=== PATIENT | male | born 1945 | race Two or more races ===

== ENCOUNTER 2022-11-22 21:57 | Inpatient (IN) | payer MEDICARE, MEDICAID ==
[~2022-11-22] VITALS: Ht 172.7 cm; Wt 56.9 kg
--- NOTE | 2022-11-22 22:30 | NUR ---
TO ER BED 11. HERIBERTOPA FROM [facility] [place] FOR ABNORMAL LAB HGB: 5.1. PT IS ALERT AND ORIENTED. RR EVEN AND NON LABORED. AMBULATORY W/ STEADY GAIT. URINAL AT BEDSIDE. CONNECTED TO POX AND HEART MONITOR
--- NOTE | 2022-11-22 22:34 | NUR ---
IV ESTABLISHED, [email or web address]
--- NOTE | 2022-11-22 22:35 | NUR ---
COVID SWAB COLLECTED
--- NOTE | 2022-11-22 22:35 | NUR ---
BLOOD COLLECTED AND SENT TO LAB
[2022-11-22 23:05] LABS: BASOPHILS % (AUTO) 0.3 % (0.0-2.0); EOSINOPHILS % (AUTO) 0.5 % (0.0-6.0); LYMPHOCYTES # (AUTO) 1.2 K/uL (0.8-4.8); LYMPHOCYTES % (AUTO) 13.8 % (20.0-44.0); MEAN CORPUSCULAR HGB CONC 31 g/dl (31.0-36.0); MEAN CORPUSCULAR VOLUME 64 fL (80-96); MONOCYTES # (AUTO) 0.5 K/uL (0.1-1.30); NEUTROPHILS # (AUTO) 6.9 K/uL (1.8-8.9); NEUTROPHILS % (AUTO) 79.4 % (43.0-81.0); PLATELET COUNT (AUTO) 270 K/uL (150-450); RED BLOOD CELL COUNT(AUTO) 2.76 MIL/uL (4.5-6.0); WHITE BLOOD COUNT (AUTO) 8.7 K/uL (4.3-11.0)
--- NOTE | 2022-11-22 23:14 | NUR ---
URINE SAMPLE COLLECTED AND SENT TO LAB
[2022-11-22 23:16] LABS: CALCIUM, SERUM 8.7 mg/dL (8.5-10.1); CARBON DIOXIDE 25 mmol/L (21-32); CHLORIDE 104 mmol/L (98-107); CREATININE 2.1 mg/dL (0.6-1.3); GLUCOSE 105 mg/dL (74-106); POTASSIUM 4.4 mmol/L (3.5-5.1); SODIUM SERUM 136 mmol/L (136-145); UREA NITROGEN, BLOOD 47 mg/dL (7-18)
[2022-11-22 23:17] LABS: HEMATOCRIT 18 % (39-51); HEMOGLOBIN 5.4 g/dL (13.5-17.5)
--- NOTE | 2022-11-22 23:19 | NUR ---
HGB 5.4 MD JENNY MADE AWARE
--- NOTE | 2022-11-22 23:30 | NUR ---
CHAPERONED DR TIERNEY DURING FECAL OCCULT SAMPLE
[2022-11-23] VITALS (13 sets, daily range): BP systolic 102–142; BP diastolic 52–80
[2022-11-23 00:48] LABS: BILIRUBIN,URINE NEGATIVE (NEGATIVE); COLOR,URINE OTHER (YELLOW); LEUKOCYTE ESTERASE ,URINE 3+ (NEGATIVE); NITRITE, URINE NEGATIVE (NEGATIVE); PROTEIN,URINE NEGATIVE (NEGATIVE); UGLUCOSE NEGATIVE (NEGATIVE); UROBILINOGEN,URINE 0.2 EU/dL (0.2)
[2022-11-23 00:53] LABS: OCCULT BLOOD STOOL NEGATIVE (NEGATIVE)
--- NOTE | 2022-11-23 01:00 | NUR ---
PT SIGNED BLOOD TRANSFUSSION CONSENT FORM
[2022-11-23] MEDS ORDERED: CEFTRIAXONE 1GM BAG (ER ONLY) 1 GM/50 ML PIGGYBACK IV ONE (01:30)
[2022-11-23] MEDS ORDERED: ACETAMINOPHEN 325 MG TABLET PO PRN (01:30)
[2022-11-23] MEDS ORDERED: Z GUARD REMEDY 4 OZ OINT TP PRN (01:30)
[2022-11-23] MEDS ORDERED: MAG HYDROX/AL HYDROX/SIMETH 30 ML UDC PO PRN (01:30)
[2022-11-23] MEDS ORDERED: MAGNESIUM HYDROXIDE 30 ML UDC PO PRN (01:30)
[2022-11-23] MEDS ORDERED: ONDANSETRON HCL/PF 4 MG/2 ML VIAL IVP PRN (01:30)
[2022-11-23] MEDS ORDERED: CEFTRIAXONE 1 G VIAL ONE (01:31)
--- NOTE | 2022-11-23 02:00 | NUR ---
INITIATED BLOOD TRANFUSSION VIA RAC18G @50MLS/HR VITAL SIGNS: HR 97 BP 100/48 O2 97 TEMP 98.2 NO ADVERSE REACTION NOTED.
[2022-11-23 02:33] LABS: BACTERIA,URINE Moderate /HPF (None Seen); SQUAMOUS EPITHELIAL CELL,UR Few /HPF (None Seen); URINE AMORPHOUS URATE Moderate /HPF (None Seen); WBC,URINE 21-50 /HPF (0-3)
--- NOTE | 2022-11-23 02:44 | NUR ---
REPORT GIVEN TO FILIPE GARCÍA FOR MATHIEU
--- NOTE | 2022-11-23 02:47 | NUR ---
RN notes Received report from RICKY Kamara
--- NOTE | 2022-11-23 03:20 | NUR ---
plush brusher notes Received Pt from ER nurse RICKY Kamara. Pt is alert and orientedX2 with episode of confusion and forgetful. On room air. No SOB. No S/S of distress noted. 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 IV site at RAC # 18 is clean, intact and infusing well PRBC. PRBC was started at 0200 am in ER by RICKY Kamara. VS is stable. afebrile. No S/S of blood transfusion reaction. Skin assessment is done and performed and picture taken. Pt's belongings was checked by AMINAH Nelson. Reorient Pt to the room and the use of call light. Pt verbalize understanding. Safety precautions is maintained. Bed at low position, brakes locked, side rails upX3, hob elevated, bed alarm is on, and call light is within reach. will continue to monitor.
--- NOTE | 2022-11-23 03:28 | NUR ---
PT TRANSFERRED TO 3W, ACLS PROTOCOLS
[2022-11-23] MEDS: PANTOPRAZOLE 40 MG VIAL IV SCH ×3 (03:42→17:08)
--- NOTE | 2022-11-23 03:43 | NUR ---
RN notes Received Pt from ER nurse RICKY Kamara. Held protonix because of ongoing blood transfusion.
--- NOTE | 2022-11-23 03:50 | NUR ---
RN notes Called Feliz Gonzalez next to kin ( [phone]) regarding Pt's status and also covid vaccine. Leave a message to Feliz and awaiting for his call.
--- NOTE | 2022-11-23 05:29 | NUR ---
RN notes 1 unit PRBC is finished transfusing. VS is stable. No S/S of blood transfusion noted. afebrile. No SOB. Pt tolerated well. BP 121/61. HR 72. temp 98.2. O2 sat is 100%. CBC stat order per MD ordered.
[2022-11-23] MEDS: IV NS 0.9% 1,000 ML IV PRN (05:39)
[2022-11-23 05:43] LABS: BASOPHILS % (AUTO) 0.4 % (0.0-2.0); EOSINOPHILS % (AUTO) 0.6 % (0.0-6.0); HEMATOCRIT 21 % (39-51); LYMPHOCYTES # (AUTO) 1.1 K/uL (0.8-4.8); LYMPHOCYTES % (AUTO) 17.1 % (20.0-44.0); MEAN CORPUSCULAR HGB CONC 31 g/dl (31.0-36.0); MEAN CORPUSCULAR VOLUME 69 fL (80-96); MONOCYTES # (AUTO) 0.4 K/uL (0.1-1.30); MONOCYTES % (AUTO) 6.8 % (2.0-12.0); NEUTROPHILS # (AUTO) 4.8 K/uL (1.8-8.9); NEUTROPHILS % (AUTO) 75.1 % (43.0-81.0); PLATELET COUNT (AUTO) 219 K/uL (150-450); WHITE BLOOD COUNT (AUTO) 6.3 K/uL (4.3-11.0)
[2022-11-23 06:03] LABS: ALANINE AMINOTRANSFERASE 9 U/L (12-78); ALBUMIN 2.8 g/dL (3.4-5.0); ALKALINE PHOSPHATASE 69 U/L (46-116); ASPARTATE AMINOTRANSFERASE 8 U/L (15-37); BILIRUBIN,TOTAL 0.2 mg/dL (0.2-1.0); CALCIUM, SERUM 8.6 mg/dL (8.5-10.1); CARBON DIOXIDE 22 mmol/L (21-32); CHLORIDE 106 mmol/L (98-107); CREATININE 2.2 mg/dL (0.6-1.3); GLUCOSE 129 mg/dL (74-106); MAGNESIUM 2.6 mg/dL (1.8-2.4); PHOSPHORUS 1.8 mg/dL (2.5-4.9); POTASSIUM 3.6 mmol/L (3.5-5.1); SODIUM SERUM 137 mmol/L (136-145); TOTAL PROTEIN, SERUM 7.1 g/dL (6.4-8.2); UREA NITROGEN, BLOOD 44 mg/dL (7-18)
[2022-11-23 06:18] LABS: HEMOGLOBIN 6.3 g/dL (13.5-17.5)
[2022-11-23 06:33] LABS: THYROID STIMULATING HORMONE 1.222 uIU/mL (0.358-3.74)
--- NOTE | 2022-11-23 06:50 | NUR ---
RN notes Second PRBC started. VS is stable. afebrile. Blood transfusion is checked and cosigned with RICKY Thompson.
--- NOTE | 2022-11-23 07:00 | NUR ---
RN closing notes Pt is resting in bed comfortably. Pt is alert and orientedX2 with episode of confusion and forgetful. On room air. No SOB. No S/S of distress noted. Tele monitor showed SR with first degree av block with BBB hr at 63. IV site at RAC # 18 is clean, intact and infusing well second PRBC. VS is stable. afebrile. No S/S of blood transfusion reaction noted. Safety precautions is maintained. Bed at low position, brakes locked, side rails upX3, hob elevated, bed alarm is on, and call light is within reach. Will endorse to am nurse for MATHIEU.
--- NOTE | 2022-11-23 07:30 | NUR ---
REGIONAL OFFICE COORDINATOR OPENING NOTE RECEIVED PATIENT ASLEEP IN BED, EASILY AWAKENED. A/Ox2 WITH EPISODES OF CONFUSION AND FORGETFULNESS, ABLE TO MAKE NEEDS KNOWN. PT ON ROOM AIR, BREATHING EVEN AND NON-LABORED. NO S/S OF RESPIRATORY DISTRESS. PATIENT HAS NO C/O OF PAIN OR DISCOMFORT. 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 IV ACCESS RAC #18G, INTACT AND PATENT, RUNNING PRBC, VS CHECKED, STABLE AND RECORDED AT 0720. SAFETY MEASURES IN PLACE: BED LOCKED AND IN LOWEST POSITION, SIDE RAILS UPx2, HOB ELEVATED, CALL LIGHT WITHIN REACH. WILL CONTINUE TO MONITOR.
[2022-11-23] MEDS ORDERED: MAGN1TAB4 PO (08:06)
--- NOTE | 2022-11-23 08:57 | NUR ---
RN NOTE HELD PROTONIX IV, PT RECEIVING PRBC
[2022-11-23] MEDS: CEPHALEXIN MONOHYDRATE 500 MG CAPSULE PO SCH ×2 (08:59→17:08)
--- NOTE | 2022-11-23 10:30 | NUR ---
RN NOTE 1 UNIT PRBC FINISHED TRANSFUSING. VS TAKEN, STABLE. AFEBRILE. PT TOLERATED WELL. BP 112/58, HR 71, TEMP 98.1, O2 AT 99%.
[2022-11-23] MEDS ORDERED: NEUTRA PHOS 1 POWD.PACKET PO ONE (11:30)
--- NOTE | 2022-11-23 13:30 | NUR ---
RN NOTE BLADDER SCAN SHOWED >900 URINE, CHARGE NURSE, SMITH, ROGERIO, DR PAUL ANN NOTIFIED. PT REFUSED WOLFF CATHETER INSERTION. EDUCATED PATIENT ABOUT RISKS AND BENEFITS OF HAVING WOLFF IN PLACE, STILL REFUSING. PT NOT COMPLAINING OF ANY PAIN, ASSISTED PATIENT TO THE BATHROOM. WILL CONTINUE TO MONITOR.
[2022-11-23 13:45] LABS: LYMPHOCYTES % (MANUAL) 20 % (16-48); NEUTROPHILS % (MANUAL) 74 (42-76)
[2022-11-23 13:46] LABS: BASOPHILS % (MANUAL) 0 % (0.0-2.0); EOSINOPHILS % (MANUAL) 0 % (0-4); MONOCYTES % (MANUAL) 6 % (0-11.0)
[2022-11-23 14:07] LABS: LYMPHOCYTES % (MANUAL) 23 % (16-48); MONOCYTES % (MANUAL) 4 % (0-11.0); NEUTROPHILS % (MANUAL) 73 (42-76)
--- NOTE | 2022-11-23 14:20 | NUR ---
RN NOTE PT IV SITE CAME OUT HE STAND UP, ATTEMPTED TO INSERT NEW IV LINE, PT REFUSED, STATED I DON'T WANT IT. MD AWARE, ORDERED PSYCH CONSULT. EDUCATED PT ABOUT HAVING IV ACCESS, STILL REFUSING. WILL CONTINUE TO MONITOR.
--- NOTE | 2022-11-23 16:00 | NUR ---
RN NOTE WOLFF CATHETER INSERTED, DRAINING YELLOW URINE, 1.7L OUT INITIALLY, TOLERATED WELL, WILL CONTINUE TO MONITOR.
--- NOTE | 2022-11-23 16:15 | NUR ---
RN NOTE PT TRIED TO REMOVE WOLFF CATHETER AND IV LINE, YELLING AND KICKING. DR PAUL ANN NOTIFIED, ORDERED BILATERAL SOFT WRIST RESTRAINTS. WILL CONTINUE TO MONITOR PT.
--- NOTE | 2022-11-23 18:32 | NUR ---
ACADEMIC COACH CLOSING NOTE RECEIVED PATIENT ASLEEP IN BED, EASILY AWAKENED. A/Ox2 WITH EPISODES OF CONFUSION AND FORGETFULNESS, ABLE TO MAKE NEEDS KNOWN. PT ON ROOM AIR, BREATHING EVEN AND NON-LABORED. NO S/S OF RESPIRATORY DISTRESS. PATIENT HAS NO C/O OF PAIN OR DISCOMFORT. IV ACCESS LFA #22G, INTACT AND PATENT, RUNNING NS @75ML/HR. PT HAVE A WOLFF CATHETER IN PLACE, DRAINING WELL. OUTPUT: 600ML. PT IS ON EXTERNAL SHAREPOINT MANAGER. BILATERAL SOFT WRIST RESTRAINTS IN PLACE. CHECKED CIRCULATION, REPOSITIONED PT Q2H. SAFETY MEASURES IN PLACE: BED LOCKED AND IN LOWEST POSITION, SIDE RAILS UPx2, HOB ELEVATED, CALL LIGHT WITHIN REACH. WILL ENDORSE TO NEXT SHIFT FOR MATHIEU.
--- NOTE | 2022-11-23 19:15 | NUR ---
RN opening notes Pt is resting in bed comfortably. Pt is alert and orientedX2 with episode of confusion and forgetful. On room air. No SOB. No S/S of distress noted. Tele monitor showed SR with first degree av block with BBB hr at 63. IV site at LFA# 22 is clean, intact and infusing well NS@ 75ml/hr VS is stable. Bilateral soft wrists restraint is intact, skin warm to touch and circulation checks Q 2hr. Jarrett cath is inplaced and draining yellow urine. Safety precautions is maintained. Bed at low position, brakes locked, side rails upX3, hob elevated, bed alarm is on, and call light is within reach. Will continue to monitor.
[2022-11-24] MEDS: IV NS 0.9% 1,000 ML IV PRN ×2 (02:33→19:20)
[2022-11-24 06:32] LABS: BASOPHILS % (AUTO) 0.2 % (0.0-2.0); EOSINOPHILS % (AUTO) 0.6 % (0.0-6.0); HEMATOCRIT 25 % (39-51); HEMOGLOBIN 7.8 g/dL (13.5-17.5); LYMPHOCYTES # (AUTO) 1.3 K/uL (0.8-4.8); LYMPHOCYTES % (AUTO) 20.8 % (20.0-44.0); MEAN CORPUSCULAR HGB CONC 32 g/dl (31.0-36.0); MEAN CORPUSCULAR VOLUME 69 fL (80-96); MONOCYTES # (AUTO) 0.5 K/uL (0.1-1.30); MONOCYTES % (AUTO) 8.2 % (2.0-12.0); NEUTROPHILS # (AUTO) 4.4 K/uL (1.8-8.9); NEUTROPHILS % (AUTO) 70.2 % (43.0-81.0); PLATELET COUNT (AUTO) 240 K/uL (150-450); RED BLOOD CELL COUNT(AUTO) 3.54 MIL/uL (4.5-6.0); WHITE BLOOD COUNT (AUTO) 6.3 K/uL (4.3-11.0)
--- NOTE | 2022-11-24 06:44 | NUR ---
RN closing notes Pt is resting in bed comfortably. Pt is alert and orientedX2 with episode of confusion and forgetful. On room air. No SOB. No S/S of distress noted. IV site at LFA# 22 is clean, intact and infusing well NS@ 75ml/hr. VS is stable. Bilateral soft wrists restraint is intact, skin warm to touch and circulation checks Q 2hr. Jarrett cath is inplaced and draining yellow urine. Kept Pt clean,dry and comfortable. Safety precautions is maintained. Bed at low position, brakes locked, side rails upX3, hob elevated, bed alarm is on, and call light is within reach. Will endorse to am nurse for MATHIEU.
[2022-11-24 07:00] VITALS: BP 111/69
[2022-11-24 07:06] LABS: ALANINE AMINOTRANSFERASE 6 U/L (12-78); ALBUMIN 2.6 g/dL (3.4-5.0); ALKALINE PHOSPHATASE 67 U/L (46-116); ASPARTATE AMINOTRANSFERASE 10 U/L (15-37); BILIRUBIN,DIRECT 0.1 mg/dL (0.0-0.2); BILIRUBIN,TOTAL 0.3 mg/dL (0.2-1.0); CALCIUM, SERUM 8.6 mg/dL (8.5-10.1); CARBON DIOXIDE 22 mmol/L (21-32); CHLORIDE 108 mmol/L (98-107); CREATININE 1.9 mg/dL (0.6-1.3); GLUCOSE 98 mg/dL (74-106); MAGNESIUM 2.3 mg/dL (1.8-2.4); PHOSPHORUS 2.9 mg/dL (2.5-4.9); POTASSIUM 4.8 mmol/L (3.5-5.1); SODIUM SERUM 137 mmol/L (136-145); UREA NITROGEN, BLOOD 28 mg/dL (7-18)
--- NOTE | 2022-11-24 07:20 | NUR ---
RN OPENING NOTE RECEIVED PATIENT RESTING IN BED. A/Ox2 WITH EPISODES OF CONFUSION AND FORGETFULNESS, ABLE TO MAKE NEEDS KNOWN. PT ON ROOM AIR, BREATHING EVEN AND NON-LABORED. NO S/S OF RESPIRATORY DISTRESS. PATIENT HAS NO C/O OF PAIN OR DISCOMFORT. IV ACCESS LFA #22G, INTACT AND PATENT, RUNNING NS @75 ML/HR. BILATERAL SOFT WRIST RESTRAINTS IN PLACE, SKIN WARM TO TOUCH. PT HAVE A WOLFF CATHETER IN PLACE AND DRAINING WELL. SAFETY MEASURES IN PLACE: BED LOCKED AND IN LOWEST POSITION, SIDE RAILS UPx3, HOB ELEVATED, CALL LIGHT AND BEDSIDE TABLE WITHIN REACH. WILL CONTINUE TO MONITOR.
[2022-11-24] MEDS: CEPHALEXIN MONOHYDRATE 500 MG CAPSULE PO SCH ×2 (08:25→17:06)
[2022-11-24] MEDS: PANTOPRAZOLE 40 MG VIAL IV SCH ×2 (08:25→17:11)
[2022-11-24] MEDS ORDERED: LORAZEPAM INJ 2 MG/ML VIAL IV PRN (11:00)
--- NOTE | 2022-11-24 11:00 | NUR ---
RN NOTE CALLED [facility] FOR PT MEDICATION LISTS @[phone], SPOKE TO CARLTON SUAREZ, SHE STATED WILL FAX THE MED LIST.
[2022-11-24] MEDS: ENSURE CLEAR 237 ML LIQUID (MIX BERRY) PO SCH ×2 (12:41→17:02)
[2022-11-24] MEDS: HALOPERIDOL 1 MG TABLET PO SCH ×2 (13:45→17:06)
[2022-11-24 16:00] VITALS: BP 109/59
--- NOTE | 2022-11-24 18:32 | NUR ---
RN CLOSING NOTE PATIENT ASLEEP IN BED, EASILY AWAKENED. A/Ox2 WITH EPISODES OF CONFUSION AND FORGETFULNESS, ABLE TO MAKE NEEDS KNOWN. PT ON ROOM AIR, BREATHING EVEN AND NON-LABORED. NO S/S OF RESPIRATORY DISTRESS. PATIENT HAS NO C/O OF PAIN OR DISCOMFORT. IV ACCESS LFA #22G, INTACT AND PATENT, RUNNING NS @75ML/HR. PT HAVE A WOLFF CATHETER IN PLACE, DRAINING WELL. OUTPUT: 2100ML. BILATERAL SOFT WRIST RESTRAINTS IN PLACE. CHECKED CIRCULATION, REPOSITIONED PT Q2H. SAFETY MEASURES IN PLACE: BED LOCKED AND IN LOWEST POSITION, SIDE RAILS UPx2, HOB ELEVATED, CALL LIGHT WITHIN REACH. WILL ENDORSE TO NEXT SHIFT FOR MATHIEU.
--- NOTE | 2022-11-24 19:45 | NUR ---
MS RN NOTES RECEIVED ON BED A/O X1-2.CONFUSED,IBF NS AT 65ML/HR RATE INFUSING WELL ON LEFT FORE ARM VIA IB PUMP,SITE PATENT.ON BILATERAL SOFT WRIST RESTRAINTS,TRYING TO HET OUT OF BED.WOLFF CATH IN PLACE DRAINS YELLOWISH OUTPUT.FALL PRECAUTION OBSERVED,BED ALARM,BED ON LOWEST POSITION AND LOCKED.WILL CONTINUE TO MONITOR STATUS.CALL LIGHT IN REACH,NEEDS ANTICIPATED.
[2022-11-24 20:00] VITALS: BP 114/58
--- NOTE | 2022-11-25 06:37 | NUR ---
MS GARCÍA NOTES ACCU-CHECK BLOOD SUGAR CHECK 116,NO INSULIN COVERAGE. Addendum: 11/25/22 at 0651 by ALEXEY WHITTINGTON RN ACCU-CHECK NOT FOR THIS PATIENT.
--- NOTE | 2022-11-25 06:38 | NUR ---
MS GARCÍA NOTES SLEEP WELL AT NIGHT.MORNING CARE RENDERED TOLERATED WELL,SALINE LOCK LEFT ARM INTACT AND PATENT.RIGHT GROIN DRESSING INTACT AND DRY,CALL LIGHT IN REACH,NEEDS ATTENDED. Addendum: 11/25/22 at 0644 by ALEXEY WHITTINGTON RN WRONG ENTRY OF NOTES,NOT FOR THIS PATIENT.
--- NOTE | 2022-11-25 06:51 | NUR ---
MS RN NOTES SLEPT WELL AT NIGHT,IVF INFUSING WELL ON LEFT ARM.RESTRAINTS IN USED FOR SAFETY,MORNING CARE RENDERED,WOLFF CATH DRAINS WELL,EMPTIED 1900 OF URINE.IN NO ACUTE DISTRESS.
--- NOTE | 2022-11-25 07:30 | NUR ---
RN MS NOTES PT IN BED, AWAKE, ALERT AND ORIENTED, NO COMPLAINT AT THIS TIME, RESPIRATIONS NORMAL, NEEDS ATTENDED, KEPT WARM AND COMFORTABLE IN BED.
[2022-11-25 08:00] VITALS: BP 126/63
[2022-11-25] MEDS: PANTOPRAZOLE 40 MG VIAL IV SCH ×2 (08:21→17:01)
[2022-11-25] MEDS: ENSURE CLEAR 237 ML LIQUID (MIX BERRY) PO SCH ×3 (08:21→17:01)
[2022-11-25] MEDS: CEPHALEXIN MONOHYDRATE 500 MG CAPSULE PO SCH ×2 (08:21→17:01)
[2022-11-25] MEDS: HALOPERIDOL 1 MG TABLET PO SCH ×3 (08:21→17:01)
--- NOTE | 2022-11-25 10:39 | NUR ---
RN MS NOTES PT IN BED, DR. SORIA AT BEDSIDE FOR PSYCH EVAL.
[2022-11-25] MEDS: IV NS 0.9% 1,000 ML IV PRN (12:51)
[2022-11-25 15:23] LABS: BILIRUBIN,URINE NEGATIVE (NEGATIVE); LEUKOCYTE ESTERASE ,URINE 3+ (NEGATIVE); NITRITE, URINE NEGATIVE (NEGATIVE); PROTEIN,URINE 1+ mg/dl (NEGATIVE); UGLUCOSE 1+ mg/dL (NEGATIVE); UROBILINOGEN,URINE 0.2 EU/dL (0.2)
[2022-11-25 15:26] LABS: COLOR,URINE STRAW (YELLOW)
[2022-11-25 15:48] LABS: BACTERIA,URINE Many /HPF (None Seen); RBC,URINE 21-50 /HPF (0-2); SQUAMOUS EPITHELIAL CELL,UR Few /HPF (None Seen); WBC,URINE 21-50 /HPF (0-3)
[2022-11-25 15:49] LABS: URINE AMORPHOUS URATE Many /HPF (None Seen)
[2022-11-25 16:05] VITALS: BP 95/46
--- NOTE | 2022-11-25 18:12 | NUR ---
RN MS NOTES PT IN BED, RESTING, DENIES PAIN, NOT IN DISTRESS, CALL LIGHT WITHIN REACH, IV FLUIDS INFUSING WELL, F/C IN PLACE DRAINING WELL WITH CLEAR, YELLOW URINE, NOTED WITH GOOD APPETITE, SAFETY PRECAUTIONS OBSERVED, BED ALARM ON AT ALL TIMES, NEEDS ATTENDED.
--- NOTE | 2022-11-26 05:50 | NUR ---
CLOSING NOTES: ALERTAND ORIENTATED X1 - 2 ARGUMENTIVE WILL ASK FOR COFFE OR WATER OR TOOTHBRUSH AND WILL CONTINUE TO SAY "NALINI PLS I NEED A TOOTH BRUSH, OR "NALINI i WANT WATER" IF YOU ANSWER WITH I'LL BRING IT SOON I CAN HE'LL REPEAT AGAIN "TEMI I NEED WATERN Temi I WANT COFFEE. HE'LL REPEAT HIS NEEDS 3 -4 TIMES BACK TO BACK EVEN WHEN AN ANSWER TO HIS QUESTION IS GIVEN. 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 HE AMBULATS WIH STANDBY ASSIST. WOLFF OUTPUT 2100LITERS COLOR PALE YELLOW CLEAR WITH AMBULATION NO DIZZINESS OR UNSTEADINESS SEEN.
--- NOTE | 2022-11-26 07:10 | NUR ---
MS RN OPENING NOTES RECEIVED PATIENT SITTING ON BED, A/O X1-2, CONFUSED, ASKING ABOUT HIS BREAKFAST, BREATHING ON ROOM AIR WITHOUT ANY DIFFICULTY, IV ACCESS LFA G#22 SALINE LOCKED, PATENT, INTACT AND FLOWING WELL. ORDER OF NS 65ML/HR RATE HAS BEEN PLACED ON HOLD BY NIGHT RN BECAUSE PATIENT HAD INTAKE OF ABOUT 2L WATER AND OUTPUT IS PALE YELLOW. WILL LET MD KNOW. WITH WOLFF CATH, PATENT AND DRAINING URINE VIA GRAVITY. DENIES PAIN OR DISCOMFORT. FALL PRECAUTION MAINTAINED: BED ALARM, BED ON LOWEST POSITION AND LOCKED POSITION. CALL LIGHT AND TRAY TABLE WITHIN EASY REACH. WILL CONTINUE TO MONITOR.
[2022-11-26 08:00] VITALS: BP 116/70
--- NOTE | 2022-11-26 08:02 | NUR ---
RN NOTES - PATIENT GOT OUT OF BED, BED ALARM WENT OFF, WOLFF CATHETER WAS PULLED AND WAS SEEN ON THE FLOOR, PATIENT INSERTED ON GETTING UP AND DROPPED SOME FECES ON THE FLOOR. PATIENT WAS MAKING FISTS, SECURED MD ORDER TO REINSTATE BILATERAL SOFT RESTRAINTS FOR SAFETY, CALLED THE GUARD TO ASSIST, PATIENT COOPERATED CALMLY. INSPECTED THE MEATUS, SCANT BLEEDING NOTED BUT NO ACTIVE BLEEDING, PATIENT DENIED PAIN OR DISCOMFORT SAYING "IT'S OKAY, IT'S OKAY". WILL CONTINUE TO MONITOR FOR BLEEDING AND BLADDER DISTENTION, WILL SECURE MD ORDERS FOR WOLFF OR STRAIGHT CATHETER INSERTION IF NECESSARY.
[2022-11-26] MEDS: ENSURE CLEAR 237 ML LIQUID (MIX BERRY) PO SCH ×3 (08:55→16:25)
[2022-11-26] MEDS: PANTOPRAZOLE 40 MG VIAL IV SCH ×2 (09:06→16:24)
[2022-11-26] MEDS: HALOPERIDOL 1 MG TABLET PO SCH ×3 (09:06→16:25)
[2022-11-26] MEDS: CEPHALEXIN MONOHYDRATE 500 MG CAPSULE PO SCH ×2 (09:07→16:25)
--- NOTE | 2022-11-26 10:02 | NUR ---
RN NOTES - PATIENT IS MORE COOPERATIVE THIS TIME, FOLLOWS COMMAND, OBEDIENT, POLITE, WANTS TO TAKE A SHOWER AND CLEAN HIMSELF. NO NEED FOR RESTRAINTS AT THIS MOMENT, MADE MD AWARE. OK TO SHOWER PER AMINAH WYNN TO ACCOMPANY PATIENT SAFELY WITH RN SUPERVISION. WILL CONTINUE TO MONITOR.
--- NOTE | 2022-11-26 15:00 | NUR ---
RN NOTES - ENCOURAGED PATIENT TO USE URINAL, PATIENT CLAIMING THAT HE HAS URINATED CLEAR YELLOW URINE TWICE ALREADY AND FLUSHED. UPON PALPATION OF THE BLADDER, PATIENT IS NOT DISTENDED. WILL CONTINUE TO MONITOR.
[2022-11-26 16:00] VITALS: BP 128/70
--- NOTE | 2022-11-26 18:34 | NUR ---
MS RN CLOSING NOTES PATIENT LYING IN BED, A/OX3, EPISODES OF CONFUSION BUT EASILY GETS REORIENTED, BREATHING ON ROOM AIR WITHOUT ANY DIFFICULTY, STILL WITH IV ACCESS ON LFA G#22 SALINE LOCKED, PATENT, INTACT COVERED WITH GAUZE AND SLEEVE, CIRCULATION IS WNL. DENIED PAIN OR DISCOMFORT. ALL DUE MEDS GIVEN AND ACCEPTED BY PATIENT. SAFETY MEASURES AND FALL PRECAUTION MAINTAINED: BED ALARM, BED ON LOWEST POSITION AND LOCKED POSITION. CALL LIGHT AND TRAY TABLE WITHIN EASY REACH. WILL ENDORSE TO JINRIKSHA DRIVER NURSE.
--- NOTE | 2022-11-26 20:01 | NUR ---
RN OPENING NOTE PATIENT ASLEEP IN BED. A/OX3. NO S/S OF DISTRESS, BREATHING WITHOUT DIFFICULTY ON ROOM AIR. LFA #22 SL INTACT AND PATENT. SAFETY MEASURES IN PLACE: BED LOCKED AND AT LOWEST POSITION, BED AT LOW FOWLERS, RAILS UP X2, CALL MEDINA WITHIN REACH. WILL CONTINUE TO MONITOR PATIENT.
[2022-11-26] MEDS ORDERED: TAMSULOSIN 0.4 MG CAP.SR.24H PO SCH (22:00)
--- NOTE | 2022-11-27 06:31 | NUR ---
RN CLOSING NOTE PATIENT AWAKE IN BED. A/OX3. NO S/S OF DISTRESS, BREATHING WITHOUT DIFFICULTY ON ROOM AIR. LFA #22 SL INTACT AND PATENT. SAFETY MEASURES IN PLACE: BED LOCKED AND AT LOWEST POSITION, LOW FOWLERS, RAILS UP X2, CALL MEDINA WITHIN REACH. WILL ENDORSE TO NEXT SHIFT FOR MATHIEU.
--- NOTE | 2022-11-27 07:49 | NUR ---
RN OPENING NOTE- PATIENT AWAKE. A/OX3. NO S/S OF DISTRESS. NO PAIN, NO DYSPNEA, LFA #22 SL INTACT. SAFETY MEASURES IN PLACE: BED LOCKED AND AT LOWEST POSITION, BED AT LOW FOWLERS, RAILS UP X2, CALL MEDINA WITHIN REACH. WILL CONTINUE TO MONITOR / ASSIST.
[2022-11-27] MEDS: ENSURE CLEAR 237 ML LIQUID (MIX BERRY) PO SCH ×2 (08:56→11:55)
[2022-11-27] MEDS: PANTOPRAZOLE 40 MG VIAL IV SCH (09:00)
[2022-11-27] MEDS: HALOPERIDOL 1 MG TABLET PO SCH ×2 (09:00→13:00)
[2022-11-27] MEDS: CEPHALEXIN MONOHYDRATE 500 MG CAPSULE PO SCH (09:00)
[2022-11-27] MEDS ORDERED: Tamsulosin PO (12:01)
[2022-11-27] MEDS ORDERED: HALO1TAB5 PO (12:01)
[2022-11-27] MEDS ORDERED: Cephalexin Monohydrate PO (12:01)
[2022-11-27] MEDS ORDERED: ACET325T53 PO (12:01)
--- NOTE | 2022-11-27 15:00 | NUR ---
RN NOTE- PT DC TO [facility] AT THIS TIME. ID [id number] REMOVED. REPORT PHONED TO CATA AT FACILITY. MED LIST AND MD ORDERS REVIEWED AND UNDERSTOOD. PT VS STABLE. ESCORTED OFF UNIT BY AMBULANCE STAFF IN [facility]
== END 2022-11-27 15:00 | DRG 811 ==
LOC: ER 22:04 → TELE 11-23 02:31 → MED 11-23 22:50
PROVIDERS: ADMIT Nurse Practitioner Acute Care; ATTEND Nurse Practitioner Acute Care
PROC: 30233N1 Transfusion of Nonautologous Red Blood Cells into Peripheral Vein, Percutaneous Approach (ICD-10-PCS; principal; 2022-11-22)
DX: D50.9 Iron deficiency anemia, unspecified (principal); G93.41 Metabolic encephalopathy; N17.0 Acute kidney failure with tubular necrosis; N39.0 Urinary tract infection, site not specified; E44.0 Moderate protein-calorie malnutrition; F05 Delirium due to known physiological condition; N13.6 Pyonephrosis; Z20.822 Contact with and (suspected) exposure to COVID-19; F03.90 Unspecified dementia, unspecified severity, without behavioral disturbance, psychotic disturbance, mood disturbance, and anxiety; F20.9 Schizophrenia, unspecified; B18.2 Chronic viral hepatitis C; E03.9 Hypothyroidism, unspecified; E83.39 Other disorders of phosphorus metabolism; E83.41 Hypermagnesemia; E88.09 Other disorders of plasma-protein metabolism, not elsewhere classified; B96.89 Other specified bacterial agents as the cause of diseases classified elsewhere; F29 Unspecified psychosis not due to a substance or known physiological condition; N18.9 Chronic kidney disease, unspecified; K82.9 Disease of gallbladder, unspecified; Z53.20 Procedure and treatment not carried out because of patient's decision for unspecified reasons; R33.9 Retention of urine, unspecified
CPT/HCPCS: 36415; 71045-TC; 76770-TC; 80048-TC; 80053-TC; 80076-TC; 81001; 82272-TC; 83735-TC; 84100-TC; 84443-TC; 84484-TC; 85025-TC; 85730-TC; 86850-TC; 87081-TC; 87086-TC; A4223; C9113; C9803; G0378; J0696; J7030; J7040; J7050; P9016

== ENCOUNTER 2024-10-04 11:51 | Inpatient (IN) | payer MEDICARE, OTHER ==
[~2024-10-04] VITALS: Ht 170.2 cm; Wt 59.0 kg
[~2024-10-04 11:51] MED LIST: ACET325T53 PO; Cephalexin Monohydrate PO; HALO1TAB5 PO; MAGN1TAB4 PO; Tamsulosin PO
[2024-10-04] MEDS ORDERED: LORAZEPAM 4 MG/ML VIAL IM ONE (12:30)
[2024-10-04 12:57] LABS: BASOPHILS % (AUTO) 0.5 % (0.0-2.0); EOSINOPHILS # (AUTO) 0.1 K/uL (0.0-0.7); EOSINOPHILS % (AUTO) 1.1 % (0.0-6.0); HEMATOCRIT 27 % (39-51); HEMOGLOBIN 9.1 g/dL (13.5-17.5); LYMPHOCYTES # (AUTO) 1.6 K/uL (0.8-4.8); LYMPHOCYTES % (AUTO) 20.8 % (20.0-44.0); MEAN CORPUSCULAR HEMOGLOBIN 30 PG (26.0-33.0); MEAN CORPUSCULAR HGB CONC 34 g/dl (31.0-36.0); MEAN CORPUSCULAR VOLUME 88 fL (80-96); MONOCYTES # (AUTO) 0.6 K/uL (0.1-1.30); MONOCYTES % (AUTO) 7.7 % (2.0-12.0); NEUTROPHILS # (AUTO) 5.5 K/uL (1.8-8.9); NEUTROPHILS % (AUTO) 69.9 % (43.0-81.0); PLATELET COUNT (AUTO) 258 K/uL (150-450); RED BLOOD CELL COUNT(AUTO) 3.03 MIL/uL (4.5-6.0); RED CELL DISTRIBUTION WIDTH 14.1 % (11.5-15.0); WHITE BLOOD COUNT (AUTO) 7.9 K/uL (4.3-11.0)
[2024-10-04 13:03] LABS: ALANINE AMINOTRANSFERASE 22 U/L (12-78); ALCOHOL, BLOOD < 3 mg/dL (0-10); ALKALINE PHOSPHATASE 94 U/L (46-116); ASPARTATE AMINOTRANSFERASE 17 U/L (15-37); BILIRUBIN,DIRECT 0.1 mg/dL (0.0-0.2); BILIRUBIN,TOTAL 0.2 mg/dL (0.2-1.0); CALCIUM, SERUM 8.7 mg/dL (8.5-10.1); CARBON DIOXIDE 18 mmol/L (21-32); CHLORIDE 106 mmol/L (98-107); CREATININE 3.9 mg/dL (0.6-1.3); GLUCOSE 108 mg/dL (74-106); POTASSIUM 3.5 mmol/L (3.5-5.1); SODIUM SERUM 139 mmol/L (136-145); TOTAL PROTEIN, SERUM 7.9 g/dL (6.4-8.2); UREA NITROGEN, BLOOD 62 mg/dL (7-18)
[2024-10-04 13:08] LABS: ACETAMINOPHEN <10 ug/ml (10-30); SALICYLATE 1.5 mg/dL (2.8-20.0)
[2024-10-04] MEDS ORDERED: ATOR20TA PO (13:38)
[2024-10-04] MEDS ORDERED: ALBU8.5H8 IH (13:38)
[2024-10-04] MEDS ORDERED: TAMS-12 PO (13:38)
[2024-10-04] MEDS ORDERED: ASPI-1169 PO (13:38)
[2024-10-04] MEDS ORDERED: LATA7.5D EACHEYE (13:38)
[2024-10-04] MEDS ORDERED: HALO2TAB PO (13:38)
[2024-10-04] MEDS: IV NS 0.9% 1,000 ML BAG IV ONE (14:00)
[2024-10-04] MEDS ORDERED: MAGNESIUM HYDROXIDE 30 ML UDC PO PRN (16:00)
[2024-10-04] MEDS ORDERED: ACETAMINOPHEN 325 MG TABLET PO PRN (16:00)
[2024-10-04] MEDS ORDERED: Z GUARD REMEDY 4 OZ OINT TP PRN (16:00)
[2024-10-04] MEDS ORDERED: TEMAZEPAM 15 MG CAPSULE PO PRN (16:00)
[2024-10-04] MEDS ORDERED: ONDANSETRON HCL/PF 4 MG/2 ML VIAL IVP PRN (16:00)
[2024-10-04] MEDS ORDERED: MAG HYDROX/AL HYDROX/SIMETH 30 ML UDC PO PRN (16:00)
[2024-10-04 16:25] VITALS: BP 133/75; TEMP 97.3; O2SAT 97
[2024-10-04] MEDS: IV NS 0.9% 1,000 ML IV PRN (16:29)
[2024-10-04 20:00] VITALS: BP 121/68; TEMP 97.8; O2SAT 98
[2024-10-04] MEDS: HEPARIN SODIUM, PORCINE 5000 UNITS/1 ML VIAL SQ SCH (20:51)
[2024-10-05 07:00] VITALS: BP 120/87; TEMP 97.5; O2SAT 100
[2024-10-05] MEDS: PANTOPRAZOLE 40 MG TABLET.DR PO SCH (07:34)
[2024-10-05] MEDS: TAMSULOSIN 0.4 MG CAP.SR.24H PO SCH (09:56)
[2024-10-05] MEDS: ASPIRIN 81 MG TAB.CHEW PO SCH (09:56)
[2024-10-05] MEDS: HALOPERIDOL 1 MG TABLET PO SCH (12:28)
[2024-10-05 16:00] VITALS: BP 125/66; TEMP 97.7; O2SAT 95
[2024-10-05 16:08] LABS: BASOPHILS % (AUTO) 0.2 % (0.0-2.0); EOSINOPHILS % (AUTO) 0.4 % (0.0-6.0); HEMATOCRIT 24 % (39-51); HEMOGLOBIN 8.3 g/dL (13.5-17.5); LYMPHOCYTES # (AUTO) 1.4 K/uL (0.8-4.8); LYMPHOCYTES % (AUTO) 18.2 % (20.0-44.0); MEAN CORPUSCULAR HEMOGLOBIN 30 PG (26.0-33.0); MEAN CORPUSCULAR HGB CONC 34 g/dl (31.0-36.0); MEAN CORPUSCULAR VOLUME 86 fL (80-96); MONOCYTES # (AUTO) 0.5 K/uL (0.1-1.30); MONOCYTES % (AUTO) 6.6 % (2.0-12.0); NEUTROPHILS # (AUTO) 5.8 K/uL (1.8-8.9); NEUTROPHILS % (AUTO) 74.6 % (43.0-81.0); PLATELET COUNT (AUTO) 211 K/uL (150-450); RED CELL DISTRIBUTION WIDTH 14.5 % (11.5-15.0); WHITE BLOOD COUNT (AUTO) 7.8 K/uL (4.3-11.0)
[2024-10-05 16:25] LABS: ALBUMIN 2.8 g/dL (3.4-5.0); BILIRUBIN,TOTAL 0.3 mg/dL (0.2-1.0); CALCIUM, SERUM 8.4 mg/dL (8.5-10.1); MAGNESIUM 2.1 mg/dL (1.8-2.4); PHOSPHORUS 2.9 mg/dL (2.5-4.9); POTASSIUM 3.5 mmol/L (3.5-5.1); TOTAL PROTEIN, SERUM 7.3 g/dL (6.4-8.2)
[2024-10-05] MEDS ORDERED: ENSURE ENLIVE 237 ML LIQUID (VANILLA) PO SCH (17:00)
[2024-10-05] MEDS: ENSURE ENLIVE 237 ML LIQUID (VANILLA) PO SCH (17:32)
[2024-10-05 20:00] VITALS: BP 112/65; TEMP 98.2; O2SAT 100
[2024-10-05] MEDS: LATANOPROST EYE DROP 0.005% 2.5 ML BOTTLE OP SCH (21:56)
[2024-10-05] MEDS: ATORVASTATIN 10 MG TABLET PO SCH (21:56)
[2024-10-05 22:30] VITALS: BP 112/65; TEMP 98.2; O2SAT 99
[2024-10-06 06:28] LABS: APPEARANCE,URINE SLIGHTLY CLOUDY (CLEAR); BILIRUBIN,URINE NEGATIVE (NEGATIVE); BLOOD, URINE NEGATIVE Ery/uL (NEGATIVE); COLOR,URINE YELLOW (YELLOW); KETONES,URINE NEGATIVE (NEGATIVE); LEUKOCYTE ESTERASE ,URINE 3+ (NEGATIVE); NITRITE, URINE NEGATIVE (NEGATIVE); PH,URINE 8.5 (5.0-8.0); PROTEIN,URINE 1+ mg/dl (NEGATIVE); UGLUCOSE NEGATIVE (NEGATIVE); UROBILINOGEN,URINE 0.2 EU/dL (0.2)
[2024-10-06 06:32] LABS: ADD URINE CULTURE YES; BACTERIA,URINE Few /HPF (None Seen); RBC,URINE 0-2 /HPF (0-2); SQUAMOUS EPITHELIAL CELL,UR None Seen /HPF (None Seen)
[2024-10-06 06:33] LABS: TRIPLE PHOSPHATE CRYSTAL,UR Many /HPF (None Seen)
[2024-10-06 06:40] LABS: CREATININE, URINE 57.2 MG/DL (30.0-125.0); URINE TOTAL PROTEIN 80.6 mg/dL (0-11.9)
[2024-10-06 06:42] LABS: AMPHETAMINE, URINE NEGATIVE (NEGATIVE); BARBITURATE, URINE NEGATIVE (NEGATIVE); BENZODIAZEPINE, URINE NEGATIVE (NEGATIVE); CANNABINOID, URINE NEGATIVE (NEGATIVE); COCCAINE, URINE NEGATIVE (NEGATIVE); OPIATE, URINE NEGATIVE (NEGATIVE); PHENCYCLIDINE SCREEN,URINE NEGATIVE (NEGATIVE)
[2024-10-06 07:00] VITALS: BP 114/69; TEMP 98.1; O2SAT 100
[2024-10-06 09:13] LABS: EOSINOPHIL,URINE None Seen
[2024-10-06] MEDS: CEFTRIAXONE 1 G in IV D5W 50 ML IV SCH (09:14)
[2024-10-06] MEDS ORDERED: OLANZAPINE 5 MG TABLET PO PRN (10:30)
[2024-10-06 13:20] LABS: BASOPHILS % (AUTO) 0.2 % (0.0-2.0); CALCIUM, SERUM 8.7 mg/dL (8.5-10.1); CARBON DIOXIDE 15 mmol/L (21-32); CHLORIDE 110 mmol/L (98-107); CREATININE 4.2 mg/dL (0.6-1.3); EOSINOPHILS % (AUTO) 0.5 % (0.0-6.0); GLUCOSE 131 mg/dL (74-106); HEMATOCRIT 25 % (39-51); HEMOGLOBIN 8.5 g/dL (13.5-17.5); LYMPHOCYTES # (AUTO) 1.3 K/uL (0.8-4.8); LYMPHOCYTES % (AUTO) 15.7 % (20.0-44.0); MAGNESIUM 2.1 mg/dL (1.8-2.4); MEAN CORPUSCULAR HEMOGLOBIN 30 PG (26.0-33.0); MEAN CORPUSCULAR HGB CONC 35 g/dl (31.0-36.0); MEAN CORPUSCULAR VOLUME 87 fL (80-96); MONOCYTES # (AUTO) 0.5 K/uL (0.1-1.30); MONOCYTES % (AUTO) 5.5 % (2.0-12.0); NEUTROPHILS # (AUTO) 6.4 K/uL (1.8-8.9); NEUTROPHILS % (AUTO) 78.1 % (43.0-81.0); PLATELET COUNT (AUTO) 231 K/uL (150-450); POTASSIUM 3.3 mmol/L (3.5-5.1); RED BLOOD CELL COUNT(AUTO) 2.82 MIL/uL (4.5-6.0); RED CELL DISTRIBUTION WIDTH 14.4 % (11.5-15.0); SODIUM SERUM 141 mmol/L (136-145); UREA NITROGEN, BLOOD 68 mg/dL (7-18); WHITE BLOOD COUNT (AUTO) 8.2 K/uL (4.3-11.0)
[2024-10-06 13:23] LABS: CREATINE KINASE, TOTAL 68 U/L (39-308)
[2024-10-06 16:00] VITALS: BP 118/63; TEMP 97.7; O2SAT 98
[2024-10-06 20:00] VITALS: BP 100/61; TEMP 98.6; O2SAT 96
[2024-10-07 07:51] LABS: CALCIUM, SERUM 9.1 mg/dL (8.5-10.1); CREATININE 3.7 mg/dL (0.6-1.3); POTASSIUM 3.7 mmol/L (3.5-5.1)
[2024-10-07 08:30] VITALS: BP 124/62; TEMP 97.5; O2SAT 95
[2024-10-07] MEDS: IV D5W 1,000 ML IV ONE ×2 (10:59→14:30)
[2024-10-07 13:08] LABS: *SPE A/G RATIO 0.9 (0.7-1.7); *SPE ALBUMIN 3.1 g/dL (2.9-4.4); *SPE ALPHA-1-GLOBULIN 0.3 g/dL (0.0-0.4); *SPE ALPHA-2-GLOBULIN 0.8 g/dL (0.4-1.0); *SPE BETA GLOBULIN 0.9 g/dL (0.7-1.3); *SPE GLOBULIN, TOTAL 3.5 g/dL (2.2-3.9); *SPE M-SPIKE Not Observed g/dL (Not Observed); *SPE PROTEIN TOTAL 6.6 g/dL (6.0-8.5); *SPEGAMMA GLOBULIN 1.5 g/dL (0.4-1.8)
[2024-10-07 16:35] VITALS: BP 110/52; TEMP 97.9; O2SAT 96
[2024-10-07 18:14] LABS: CALCIUM, SERUM 8.3 mg/dL (8.5-10.1); CREATININE 3.5 mg/dL (0.6-1.3); POTASSIUM 3.4 mmol/L (3.5-5.1)
[2024-10-07 20:00] VITALS: BP 102/51; TEMP 97.6; O2SAT 98
[2024-10-08 00:09] LABS: PTH, INTACT 108 pg/mL (15-65)
[2024-10-08 07:25] LABS: CALCIUM, SERUM 8.2 mg/dL (8.5-10.1); CREATININE 3.1 mg/dL (0.6-1.3); POTASSIUM 3.2 mmol/L (3.5-5.1)
[2024-10-08 08:30] VITALS: BP 109/60; TEMP 97.5; O2SAT 95
[2024-10-08] MEDS: POTASSIUM CHLORIDE 20 MEQ TAB.PRT.SR PO ONE (12:44)
[2024-10-08] MEDS: CITRIC ACID/SODIUM CITRATE (BICITRA)15 ML UDC PO SCH (13:09)
[2024-10-08 14:20] LABS: THYROID STIMULATING HORMONE 0.57 uIU/mL (0.358-3.74)
[2024-10-08 16:00] VITALS: BP 138/90; TEMP 97.9; O2SAT 100
[2024-10-08 20:00] VITALS: BP 127/66; TEMP 98.4; O2SAT 100
[2024-10-09 20:00] VITALS: BP 143/83; TEMP 98.6; O2SAT 100
[2024-10-10 04:03] VITALS: BP 115/69; TEMP 98; O2SAT 100
[2024-10-10 08:41] VITALS: BP 120/70; TEMP 97.7; O2SAT 96
[2024-10-10] MEDS ORDERED: CEFD300C3 PO (09:55)
[2024-10-16 20:07] LABS: VITAMIN B1 THIAMINE,WB 83.7 nmol/L (66.5-200.0)
== END 2024-10-10 16:41 | DRG 682 ==
LOC: ER 11:58 → MED 15:23
PROVIDERS: ADMIT Nurse Practitioner Acute Care; ATTEND Nurse Practitioner Acute Care
DX: N17.0 Acute kidney failure with tubular necrosis (principal); G93.41 Metabolic encephalopathy; D68.59 Other primary thrombophilia; F02.83 Dementia in other diseases classified elsewhere, unspecified severity, with mood disturbance; E87.20 Acidosis, unspecified; E87.0 Hyperosmolality and hypernatremia; R62.7 Adult failure to thrive; N18.4 Chronic kidney disease, stage 4 (severe); N13.6 Pyonephrosis; E86.0 Dehydration; Z74.09 Other reduced mobility; F20.9 Schizophrenia, unspecified; B18.2 Chronic viral hepatitis C; E03.9 Hypothyroidism, unspecified; H40.9 Unspecified glaucoma; E78.5 Hyperlipidemia, unspecified; E87.6 Hypokalemia; F94.0 Selective mutism; Z78.1 Physical restraint status; G30.9 Alzheimer's disease, unspecified; D64.9 Anemia, unspecified; M89.8X9 Other specified disorders of bone, unspecified site; Z79.899 Other long term (current) drug therapy; Z91.199 Patient's noncompliance with other medical treatment and regimen due to unspecified reason; R33.0 Drug induced retention of urine; T43.4X5A Adverse effect of butyrophenone and thiothixene neuroleptics, initial encounter; Y92.129 Unspecified place in nursing home as the place of occurrence of the external cause; N40.0 Benign prostatic hyperplasia without lower urinary tract symptoms; Z79.82 Long term (current) use of aspirin; I44.0 Atrioventricular block, first degree; Z68.20 Body mass index [BMI] 20.0-20.9, adult
CPT/HCPCS: 36415; 70450-TC; 71045-TC; 76770-TC; 80048-TC; 80053-TC; 80076-TC; 81001; 82550-TC; 82570-TC; 82607-TC; 83735-TC; 83921; 83970; 84100-TC; 84155; 84165; 84300-TC; 84425; 84443-TC; 85025-TC; 87081-TC; 87086-TC; 92526; 92611-TC; 97110-TC; 97112-TC; 97116-TC; 97530-TC; A4223; G0378; G0480; J0696; J1644; J2060; J7030; J7060; J7070

== ENCOUNTER 2025-03-03 10:59 | Inpatient (IN) | payer MEDICARE, OTHER ==
[~2025-03-03] VITALS: Ht 172.7 cm; Wt 43.5 kg
[~2025-03-03 10:59] MED LIST changes: -ACET325T53 PO; +ALBU8.5H8 IH; +ASPI-1169 PO; +ATOR20TA GT; +CEFD300C3 PO; -Cephalexin Monohydrate PO; -HALO1TAB5 PO; +HALO2TAB GT; +LATA7.5D EACHEYE; -MAGN1TAB4 PO; +TAMS-12 GT; -Tamsulosin PO
[2025-03-03 11:35] LABS: BASOPHILS % (AUTO) 0.2 % (0.0-2.0); EOSINOPHILS % (AUTO) 0.3 % (0.0-6.0); HEMATOCRIT 34 % (39-51); HEMOGLOBIN 10.4 g/dL (13.5-17.5); LYMPHOCYTES # (AUTO) 1.4 K/uL (0.8-4.8); MEAN CORPUSCULAR HEMOGLOBIN 23 PG (26.0-33.0); MEAN CORPUSCULAR HGB CONC 31 g/dl (31.0-36.0); MEAN CORPUSCULAR VOLUME 75 fL (80-96); MONOCYTES # (AUTO) 0.8 K/uL (0.1-1.30); MONOCYTES % (AUTO) 6.7 % (2.0-12.0); NEUTROPHILS # (AUTO) 9.2 K/uL (1.8-8.9); NEUTROPHILS % (AUTO) 80.8 % (43.0-81.0); PLATELET COUNT (AUTO) 280 K/uL (150-450); RED CELL DISTRIBUTION WIDTH 20.9 % (11.5-15.0); WHITE BLOOD COUNT (AUTO) 11.4 K/uL (4.3-11.0)
[2025-03-03] MEDS: IV NS 0.9% 1,000 ML BAG IV ONE (11:35)
[2025-03-03] MEDS: CEFEPIME 1 GM in IV D5W 50 ML IV ONE (11:35)
[2025-03-03] MEDS ORDERED: FINA5TAB11 GT (11:42)
[2025-03-03] MEDS ORDERED: ACET325T53 GT (11:42)
[2025-03-03] MEDS ORDERED: MAG30ORA GT (11:42)
[2025-03-03] MEDS ORDERED: MAGN400O6 GT (11:42)
[2025-03-03] MEDS ORDERED: PANT40TA49 GT (11:42)
[2025-03-03] MEDS ORDERED: ASPI-1420 PO (11:42)
[2025-03-03 11:57] LABS: LACTIC ACID 1.9 mmol/L (0.4-2.0)
[2025-03-03 11:57] LABS: APPEARANCE,URINE CLOUDY (CLEAR); BILIRUBIN,URINE Negative (NEGATIVE); BLOOD, URINE Large Ery/uL (NEGATIVE); COLOR,URINE YELLOW (YELLOW); KETONES,URINE Negative (NEGATIVE); LEUKOCYTE ESTERASE ,URINE Small (NEGATIVE); PH,URINE 5.5 (5.0-8.0); PROTEIN,URINE >=300 mg/dl (NEGATIVE); UGLUCOSE Negative (NEGATIVE); UROBILINOGEN,URINE 0.2 EU/dL (0.2)
[2025-03-03 11:58] LABS: ALANINE AMINOTRANSFERASE 121 U/L (12-78); ALBUMIN 2.4 g/dL (3.4-5.0); ALKALINE PHOSPHATASE 122 U/L (46-116); ASPARTATE AMINOTRANSFERASE 74 U/L (15-37); BILIRUBIN,DIRECT 0.1 mg/dL (0.0-0.2); BILIRUBIN,TOTAL 0.4 mg/dL (0.2-1.0); CALCIUM, SERUM 9.5 mg/dL (8.5-10.1); CARBON DIOXIDE 18 mmol/L (21-32); GLUCOSE 138 mg/dL (74-106); POTASSIUM 5.8 mmol/L (3.5-5.1); TOTAL PROTEIN, SERUM 9.6 g/dL (6.4-8.2)
[2025-03-03 12:01] LABS: CHLORIDE 133 mmol/L (98-107); CREATININE 8.9 mg/dL (0.6-1.3); SODIUM SERUM 166 mmol/L (136-145)
[2025-03-03] MEDS: VANCOMYCIN 1 GM in IV D5W 250 ML IV ONE (12:05)
[2025-03-03 12:06] LABS: INR 1.17 (0.91-1.10); PROTHROMBIN TIME 11.9 SECS (9.2-11.1)
[2025-03-03 12:13] LABS: NITRITE, URINE NEGATIVE (NEGATIVE)
[2025-03-03 12:14] LABS: UREA NITROGEN, BLOOD > 150 mg/dL (7-18)
[2025-03-03 12:17] LABS: ADD URINE CULTURE YES; BACTERIA,URINE 1+ /HPF (None Seen); WBC,URINE 21-50 /HPF (0-3)
[2025-03-03 12:19] LABS: SQUAMOUS EPITHELIAL CELL,UR Few /HPF (None Seen)
[2025-03-03] MEDS ORDERED: SODIUM BICARBONATE SYR 50 MEQ/50 ML DISP.SYRIN ONE (12:38)
[2025-03-03] MEDS: SODIUM BICARBONATE SYR 50 MEQ/50 ML DISP.SYRIN IV ONE (12:40)
[2025-03-03] MEDS: Calcium Gluconate 1GM/10ML 4.65 MEQ in IV NS 0.9% 100 ML IV ONE (12:40)
[2025-03-03 14:15] VITALS: BP 125/73; TEMP 97.4; O2SAT 98
[2025-03-03] MEDS ORDERED: ZOLPIDEM TARTRATE 5 MG TABLET PO PRN (16:30)
[2025-03-03] MEDS ORDERED: Z GUARD REMEDY 4 OZ OINT TP PRN (16:30)
[2025-03-03] MEDS ORDERED: ONDANSETRON HCL/PF 4 MG/2 ML VIAL IVP PRN (16:30)
[2025-03-03] MEDS: IV D5/0.45 NACL 1,000 ML IV SCH (16:53)
[2025-03-03 17:00] VITALS: BP 119/82; TEMP 97.6; O2SAT 98
[2025-03-03] MEDS: ENOXAPARIN SODIUM 30 MG/0.3 ML DISP.SYRIN SQ SCH (17:30)
[2025-03-03] MEDS ORDERED: DEXTROSE 50%-WATER 50 ML DISP.SYRIN IV PRN (20:00)
[2025-03-03] MEDS ORDERED: CEFEPIME 2 GM in IV D5W 100 ML IV SCH (21:00)
[2025-03-03] MEDS: DOXYCYCLINE 100 MG in IV D5W 100 ML IV SCH (21:15)
[2025-03-03 22:01] LABS: ABG BASE EXCESS -7.3 mmol/L (-2.0-3.0); ABG OXYGEN SATURATION 99.5 % (94.0-98.0); ABG PCO2 22.9 mmHg (35.0-48.0); ABG PH 7.445 (7.350-7.450); ABG PO2 457.4 mmHg (83.0-108.0); ABG TOTAL HEMOGLOBIN 9.5 G/dL (13.5-17.5); MetHb 0.3 % (0.0-1.5); O2Hb 99.2 % (94.0-97.0); SITE, ABG RIGHT RADIAL
[2025-03-03] MEDS ORDERED: IOHEXOL-350 100 ML VIAL IV ONE (22:11)
[2025-03-03 22:45] VITALS: BP 117/70; O2SAT 100
[2025-03-03] MEDS: BLOOD SUGAR DIAGNOSTIC 1 EACH STRIP IN SCH (22:57)
[2025-03-03 23:00] VITALS: BP 99/68; O2SAT 100
[2025-03-03 23:33] VITALS: BP 124/75; TEMP 98.6
[2025-03-03 23:43] LABS: BASOPHILS % (AUTO) 0.1 % (0.0-2.0); EOSINOPHILS # (AUTO) 0.1 K/uL (0.0-0.7); EOSINOPHILS % (AUTO) 0.7 % (0.0-6.0); HEMATOCRIT 27 % (39-51); HEMOGLOBIN 8.5 g/dL (13.5-17.5); LYMPHOCYTES # (AUTO) 0.8 K/uL (0.8-4.8); LYMPHOCYTES % (AUTO) 8.3 % (20.0-44.0); MEAN CORPUSCULAR HEMOGLOBIN 24 PG (26.0-33.0); MEAN CORPUSCULAR HGB CONC 31 g/dl (31.0-36.0); MEAN CORPUSCULAR VOLUME 75 fL (80-96); MONOCYTES # (AUTO) 0.7 K/uL (0.1-1.30); MONOCYTES % (AUTO) 7.2 % (2.0-12.0); NEUTROPHILS # (AUTO) 7.9 K/uL (1.8-8.9); NEUTROPHILS % (AUTO) 83.7 % (43.0-81.0); PLATELET COUNT (AUTO) 229 K/uL (150-450); RED BLOOD CELL COUNT(AUTO) 3.63 MIL/uL (4.5-6.0); RED CELL DISTRIBUTION WIDTH 20.7 % (11.5-15.0); WHITE BLOOD COUNT (AUTO) 9.4 K/uL (4.3-11.0)
[2025-03-03 23:49] LABS: BILIRUBIN,TOTAL 0.3 mg/dL (0.2-1.0); CALCIUM, SERUM 8.6 mg/dL (8.5-10.1); CREATININE 7.4 mg/dL (0.6-1.3); POTASSIUM 4.7 mmol/L (3.5-5.1); TOTAL PROTEIN, SERUM 7.4 g/dL (6.4-8.2)
[2025-03-03 23:58] LABS: LACTIC ACID 1.7 mmol/L (0.4-2.0)
[2025-03-04] VITALS (20 sets, daily range): BP systolic 83–127; BP diastolic 56–83; TEMP 96.8–98.6; O2SAT 91–100
[2025-03-04] MEDS ORDERED: NOREPINEPHRINE 8 MG in IV D5W 242 ML IV PRN (01:00)
[2025-03-04] MEDS: PANTOPRAZOLE 40 MG VIAL IV SCH (01:03)
[2025-03-04] MEDS ORDERED: HEPARIN SODIUM, PORCINE 1000 UNIT/1 ML VIAL IV ONE (01:15)
[2025-03-04] MEDS: HEPARIN SODIUM, PORCINE 5000 UNITS/1 ML VIAL ONE (01:37)
[2025-03-04] MEDS ORDERED: HEPARIN INFUSION/D5W 500 ML IV ONE (01:38)
[2025-03-04] MEDS: HEPARIN SODIUM, PORCINE 5000 UNITS/1 ML VIAL IV ONE (01:48)
[2025-03-04] MEDS: HEPARIN INFUSION/D5W 500 ML IV PRN (01:50)
[2025-03-04] MEDS: ALBUMIN 25% 25 GM in PREMIX 1 EA IV PRN (03:17)
[2025-03-04] MEDS: ALBUMIN 25% 100 ML IV ONE (03:17)
[2025-03-04 05:13] LABS: CALCIUM, SERUM 9.3 mg/dL (8.5-10.1); CREATININE 3.5 mg/dL (0.6-1.3); MAGNESIUM 2.2 mg/dL (1.8-2.4); PHOSPHORUS 3.4 mg/dL (2.5-4.9); POTASSIUM 3.2 mmol/L (3.5-5.1)
[2025-03-04 05:15] LABS: HEMOGLOBIN 8.5 g/dL (13.5-17.5)
[2025-03-04 05:18] LABS: BASOPHILS % (AUTO) 0.2 % (0.0-2.0); EOSINOPHILS # (AUTO) 0.2 K/uL (0.0-0.7); EOSINOPHILS % (AUTO) 1.3 % (0.0-6.0); HEMATOCRIT 27 % (39-51); HEMOGLOBIN 8.6 g/dL (13.5-17.5); LYMPHOCYTES # (AUTO) 1.2 K/uL (0.8-4.8); LYMPHOCYTES % (AUTO) 10.7 % (20.0-44.0); MEAN CORPUSCULAR HEMOGLOBIN 24 PG (26.0-33.0); MEAN CORPUSCULAR HGB CONC 32 g/dl (31.0-36.0); MEAN CORPUSCULAR VOLUME 73 fL (80-96); MONOCYTES # (AUTO) 0.5 K/uL (0.1-1.30); MONOCYTES % (AUTO) 4.1 % (2.0-12.0); NEUTROPHILS # (AUTO) 9.6 K/uL (1.8-8.9); NEUTROPHILS % (AUTO) 83.7 % (43.0-81.0); PLATELET COUNT (AUTO) 230 K/uL (150-450); RED BLOOD CELL COUNT(AUTO) 3.64 MIL/uL (4.5-6.0); RED CELL DISTRIBUTION WIDTH 20.8 % (11.5-15.0); WHITE BLOOD COUNT (AUTO) 11.4 K/uL (4.3-11.0)
[2025-03-04] MEDS: INSULIN REGULAR, HUMAN 100 UNIT/ML 3 ML VIAL SQ PRN (05:33)
[2025-03-04] MEDS ORDERED: PANTOPRAZOLE 40 MG TABLET.DR PO SCH (07:30)
[2025-03-04] MEDS: CEFEPIME 1 GM in IV D5W 50 ML IV SCH (11:31)
[2025-03-04] MEDS ORDERED: BISACODYL SUPP (10 MG) 10 MG/SUPP.RECT SUPP.RECT RC PRN (17:00)
[2025-03-04 20:27] LABS: HEMOGLOBIN 7.8 g/dL (13.5-17.5)
[2025-03-05] VITALS (8 sets, daily range): BP systolic 97–109; BP diastolic 57–68; TEMP 97.3–99; O2SAT 95–100
[2025-03-05 06:31] LABS: BASOPHILS % (AUTO) 0.1 % (0.0-2.0); EOSINOPHILS # (AUTO) 0.1 K/uL (0.0-0.7); EOSINOPHILS % (AUTO) 1.7 % (0.0-6.0); HEMATOCRIT 25 % (39-51); HEMOGLOBIN 7.9 g/dL (13.5-17.5); LYMPHOCYTES # (AUTO) 1.3 K/uL (0.8-4.8); LYMPHOCYTES % (AUTO) 16.1 % (20.0-44.0); MEAN CORPUSCULAR HEMOGLOBIN 24 PG (26.0-33.0); MEAN CORPUSCULAR HGB CONC 32 g/dl (31.0-36.0); MEAN CORPUSCULAR VOLUME 74 fL (80-96); MONOCYTES # (AUTO) 0.5 K/uL (0.1-1.30); MONOCYTES % (AUTO) 5.5 % (2.0-12.0); NEUTROPHILS # (AUTO) 6.3 K/uL (1.8-8.9); NEUTROPHILS % (AUTO) 76.6 % (43.0-81.0); PLATELET COUNT (AUTO) 205 K/uL (150-450); RED BLOOD CELL COUNT(AUTO) 3.34 MIL/uL (4.5-6.0); RED CELL DISTRIBUTION WIDTH 20.7 % (11.5-15.0); WHITE BLOOD COUNT (AUTO) 8.3 K/uL (4.3-11.0)
[2025-03-05 07:04] LABS: CALCIUM, SERUM 8.6 mg/dL (8.5-10.1); CREATININE 4.9 mg/dL (0.6-1.3); PHOSPHORUS 5.5 mg/dL (2.5-4.9); POTASSIUM 3.3 mmol/L (3.5-5.1)
[2025-03-05 08:12] LABS: HEPATITIS B SURFACE AB (QUAL) Reactive (.)
[2025-03-05] MEDS: THERAHONEY GEL 1.5 OZ TUBE TP SCH (09:12)
[2025-03-05] MEDS: IV D5/0.45 NACL 1,000 ML IV PRN (20:23)
[2025-03-05 20:40] LABS: HEMOGLOBIN 8.2 g/dL (13.5-17.5)
[2025-03-06] VITALS (10 sets, daily range): BP systolic 93–123; BP diastolic 51–62; TEMP 97.3–98.6; O2SAT 96–100
[2025-03-06 04:09] LABS: HEPATITIS A AB, IgM Negative (Negative); HEPATITIS B CORE AB, TOTAL Positive (Negative)
[2025-03-06 08:54] LABS: BASOPHILS % (AUTO) 0.2 % (0.0-2.0); EOSINOPHILS # (AUTO) 0.1 K/uL (0.0-0.7); EOSINOPHILS % (AUTO) 1.2 % (0.0-6.0); HEMATOCRIT 24 % (39-51); HEMOGLOBIN 7.3 g/dL (13.5-17.5); LYMPHOCYTES # (AUTO) 1.4 K/uL (0.8-4.8); LYMPHOCYTES % (AUTO) 19.8 % (20.0-44.0); MEAN CORPUSCULAR HEMOGLOBIN 23 PG (26.0-33.0); MEAN CORPUSCULAR HGB CONC 31 g/dl (31.0-36.0); MEAN CORPUSCULAR VOLUME 76 fL (80-96); MONOCYTES # (AUTO) 0.5 K/uL (0.1-1.30); MONOCYTES % (AUTO) 6.6 % (2.0-12.0); NEUTROPHILS % (AUTO) 72.2 % (43.0-81.0); PLATELET COUNT (AUTO) 166 K/uL (150-450); RED BLOOD CELL COUNT(AUTO) 3.11 MIL/uL (4.5-6.0); RED CELL DISTRIBUTION WIDTH 20.7 % (11.5-15.0)
[2025-03-06 09:21] LABS: CALCIUM, SERUM 8.1 mg/dL (8.5-10.1); MAGNESIUM 2.2 mg/dL (1.8-2.4); PHOSPHORUS 4.7 mg/dL (2.5-4.9); POTASSIUM 3.4 mmol/L (3.5-5.1)
[2025-03-06] MEDS: KEY,NONCONTROL,TO KEEP IN PYXI 1 EA MC ONE (10:02)
[2025-03-06 10:51] LABS: APPEARANCE,URINE CLEAR (CLEAR); BILIRUBIN,URINE NEGATIVE (NEGATIVE); BLOOD, URINE 3+ Ery/uL (NEGATIVE); COLOR,URINE YELLOW (YELLOW); KETONES,URINE NEGATIVE (NEGATIVE); LEUKOCYTE ESTERASE ,URINE 3+ (NEGATIVE); NITRITE, URINE NEGATIVE (NEGATIVE); PROTEIN,URINE 2+ mg/dl (NEGATIVE); UGLUCOSE NEGATIVE (NEGATIVE); UROBILINOGEN,URINE 0.2 EU/dL (0.2)
[2025-03-06 11:17] LABS: CREATININE, URINE 27.7 MG/DL (30.0-125.0); URINE TOTAL PROTEIN 121.9 mg/dL (0-11.9)
[2025-03-06 11:24] LABS: ADD URINE CULTURE YES
[2025-03-06 11:25] LABS: BACTERIA,URINE Moderate /HPF (None Seen); SQUAMOUS EPITHELIAL CELL,UR 0-2 /HPF (None Seen)
[2025-03-06 11:45] LABS: ANISOCYTOSIS 1+; LYMPHOCYTES % (MANUAL) 24 % (16-48); MONOCYTES % (MANUAL) 5 % (0-11.0); NEUTROPHILS % (MANUAL) 71 (42-76); PLATELET ESTIMATE DECREASED
[2025-03-06 12:53] LABS: EOSINOPHIL,URINE None Seen
[2025-03-06] MEDS: NEPRO 1,000 ML BOTTLE GT PRN (17:35)
[2025-03-06 18:21] LABS: HEMOGLOBIN 6.8 g/dL (13.5-17.5)
[2025-03-06 20:57] LABS: HEMOGLOBIN 6.7 g/dL (13.5-17.5)
[2025-03-07] VITALS (14 sets, daily range): BP systolic 90–125; BP diastolic 51–75; TEMP 97.3–98.4; O2SAT 95–100
[2025-03-07 07:00] LABS: CALCIUM, SERUM 8.1 mg/dL (8.5-10.1); CREATININE 3.3 mg/dL (0.6-1.3)
[2025-03-07 07:34] LABS: BASOPHILS % (AUTO) 0.2 % (0.0-2.0); EOSINOPHILS # (AUTO) 0.1 K/uL (0.0-0.7); EOSINOPHILS % (AUTO) 1.1 % (0.0-6.0); HEMATOCRIT 22 % (39-51); HEMOGLOBIN 7.1 g/dL (13.5-17.5); LYMPHOCYTES # (AUTO) 1.1 K/uL (0.8-4.8); LYMPHOCYTES % (AUTO) 12.8 % (20.0-44.0); MEAN CORPUSCULAR HEMOGLOBIN 24 PG (26.0-33.0); MEAN CORPUSCULAR HGB CONC 32 g/dl (31.0-36.0); MEAN CORPUSCULAR VOLUME 75 fL (80-96); MONOCYTES # (AUTO) 0.4 K/uL (0.1-1.30); NEUTROPHILS # (AUTO) 6.7 K/uL (1.8-8.9); NEUTROPHILS % (AUTO) 80.9 % (43.0-81.0); PLATELET COUNT (AUTO) 181 K/uL (150-450); RED BLOOD CELL COUNT(AUTO) 2.96 MIL/uL (4.5-6.0); RED CELL DISTRIBUTION WIDTH 20.5 % (11.5-15.0); WHITE BLOOD COUNT (AUTO) 8.3 K/uL (4.3-11.0)
[2025-03-07] MEDS: HEPARIN INFUSION/D5W 500 ML IV PRN (11:00)
[2025-03-07 11:37] LABS: MONOCYTES % (MANUAL) 4 % (0-11.0); NEUTROPHILS % (MANUAL) 81 (42-76)
[2025-03-07 11:38] LABS: LYMPHOCYTES % (MANUAL) 15 % (16-48)
[2025-03-07 11:39] LABS: ANISOCYTOSIS 1+
[2025-03-07 18:30] LABS: HEMOGLOBIN 6.2 g/dL (13.5-17.5)
[2025-03-08] VITALS (12 sets, daily range): BP systolic 90–105; BP diastolic 46–60; TEMP 97.4–98.5; O2SAT 95–100
[2025-03-08 06:47] LABS: BASOPHILS % (AUTO) 0.2 % (0.0-2.0); EOSINOPHILS # (AUTO) 0.1 K/uL (0.0-0.7); EOSINOPHILS % (AUTO) 0.8 % (0.0-6.0); HEMATOCRIT 24 % (39-51); HEMOGLOBIN 7.7 g/dL (13.5-17.5); LYMPHOCYTES # (AUTO) 1.4 K/uL (0.8-4.8); LYMPHOCYTES % (AUTO) 12.2 % (20.0-44.0); MEAN CORPUSCULAR HEMOGLOBIN 25 PG (26.0-33.0); MEAN CORPUSCULAR HGB CONC 33 g/dl (31.0-36.0); MEAN CORPUSCULAR VOLUME 75 fL (80-96); MONOCYTES # (AUTO) 0.6 K/uL (0.1-1.30); MONOCYTES % (AUTO) 5.7 % (2.0-12.0); NEUTROPHILS # (AUTO) 9.1 K/uL (1.8-8.9); NEUTROPHILS % (AUTO) 81.1 % (43.0-81.0); PLATELET COUNT (AUTO) 169 K/uL (150-450); RED BLOOD CELL COUNT(AUTO) 3.13 MIL/uL (4.5-6.0); RED CELL DISTRIBUTION WIDTH 19.6 % (11.5-15.0); WHITE BLOOD COUNT (AUTO) 11.2 K/uL (4.3-11.0)
[2025-03-08 07:14] LABS: CALCIUM, SERUM 8.3 mg/dL (8.5-10.1); CREATININE 2.6 mg/dL (0.6-1.3); POTASSIUM 3.2 mmol/L (3.5-5.1)
[2025-03-08] MEDS: PANTOPRAZOLE 40 MG/PACK PACK NG SCH (08:59)
[2025-03-08] MEDS: NEPRO 1,000 ML BOTTLE GT SCH (12:29)
[2025-03-08] MEDS: SOD FERRIC GLUC 125 MG in IV NS 0.9% 100 ML IV SCH (16:02)
[2025-03-09] VITALS (8 sets, daily range): BP systolic 103–153; BP diastolic 52–73; TEMP 97.3–98.4; O2SAT 94–100
[2025-03-09 07:14] LABS: BASOPHILS # (AUTO) 0.1 K/uL (0.0-0.2); BASOPHILS % (AUTO) 0.6 % (0.0-2.0); EOSINOPHILS # (AUTO) 0.1 K/uL (0.0-0.7); EOSINOPHILS % (AUTO) 1.4 % (0.0-6.0); HEMATOCRIT 23 % (39-51); HEMOGLOBIN 7.4 g/dL (13.5-17.5); LYMPHOCYTES # (AUTO) 1.4 K/uL (0.8-4.8); LYMPHOCYTES % (AUTO) 15.4 % (20.0-44.0); MEAN CORPUSCULAR HEMOGLOBIN 25 PG (26.0-33.0); MEAN CORPUSCULAR HGB CONC 33 g/dl (31.0-36.0); MEAN CORPUSCULAR VOLUME 76 fL (80-96); MONOCYTES # (AUTO) 0.4 K/uL (0.1-1.30); MONOCYTES % (AUTO) 4.8 % (2.0-12.0); NEUTROPHILS # (AUTO) 7.3 K/uL (1.8-8.9); NEUTROPHILS % (AUTO) 77.8 % (43.0-81.0); PLATELET COUNT (AUTO) 166 K/uL (150-450); RED BLOOD CELL COUNT(AUTO) 2.99 MIL/uL (4.5-6.0); RED CELL DISTRIBUTION WIDTH 20.2 % (11.5-15.0); WHITE BLOOD COUNT (AUTO) 9.3 K/uL (4.3-11.0)
[2025-03-09 08:23] LABS: CALCIUM, SERUM 8.7 mg/dL (8.5-10.1); CREATININE 3.2 mg/dL (0.6-1.3); MAGNESIUM 2.4 mg/dL (1.8-2.4); PHOSPHORUS 3.5 mg/dL (2.5-4.9)
[2025-03-09 13:01] LABS: INR 1.06 (0.91-1.10); PROTHROMBIN TIME 11.2 SECS (9.2-11.1)
[2025-03-09] MEDS: CEFTRIAXONE 1 G in IV D5W 50 ML IV SCH (20:57)
[2025-03-10] VITALS (8 sets, daily range): BP systolic 99–131; BP diastolic 56–70; TEMP 97.5–98.8; O2SAT 99–100
[2025-03-10 07:39] LABS: BASOPHILS % (AUTO) 0.2 % (0.0-2.0); EOSINOPHILS # (AUTO) 0.1 K/uL (0.0-0.7); EOSINOPHILS % (AUTO) 1.4 % (0.0-6.0); HEMATOCRIT 27 % (39-51); HEMOGLOBIN 8.6 g/dL (13.5-17.5); LYMPHOCYTES % (AUTO) 11.7 % (20.0-44.0); MEAN CORPUSCULAR HEMOGLOBIN 25 PG (26.0-33.0); MEAN CORPUSCULAR HGB CONC 32 g/dl (31.0-36.0); MEAN CORPUSCULAR VOLUME 78 fL (80-96); MONOCYTES # (AUTO) 0.5 K/uL (0.1-1.30); MONOCYTES % (AUTO) 5.7 % (2.0-12.0); PLATELET COUNT (AUTO) 197 K/uL (150-450); RED BLOOD CELL COUNT(AUTO) 3.47 MIL/uL (4.5-6.0); RED CELL DISTRIBUTION WIDTH 21.5 % (11.5-15.0); WHITE BLOOD COUNT (AUTO) 8.6 K/uL (4.3-11.0)
[2025-03-10 08:30] LABS: CREATININE 3.1 mg/dL (0.6-1.3); POTASSIUM 3.5 mmol/L (3.5-5.1)
[2025-03-10] MEDS ORDERED: IOHEXOL 240MG/ML 0 ML IV ONE (14:37)
[2025-03-10] MEDS ORDERED: LIDOCAINE 1% INJ 50 ML MDV IJ ONE (14:37)
[2025-03-10] MEDS ORDERED: HEPARIN SODIUM, PORCINE 1,000 UNIT/ML VIAL ONE (15:12)
[2025-03-11] VITALS (9 sets, daily range): BP systolic 100–123; BP diastolic 61–74; TEMP 97.3–99.1; O2SAT 99–100
[2025-03-11 07:41] LABS: BASOPHILS % (AUTO) 0.2 % (0.0-2.0); EOSINOPHILS # (AUTO) 0.1 K/uL (0.0-0.7); EOSINOPHILS % (AUTO) 0.8 % (0.0-6.0); HEMATOCRIT 23 % (39-51); HEMOGLOBIN 7.3 g/dL (13.5-17.5); LYMPHOCYTES % (AUTO) 10.8 % (20.0-44.0); MEAN CORPUSCULAR HEMOGLOBIN 25 PG (26.0-33.0); MEAN CORPUSCULAR HGB CONC 33 g/dl (31.0-36.0); MEAN CORPUSCULAR VOLUME 76 fL (80-96); MONOCYTES # (AUTO) 0.5 K/uL (0.1-1.30); MONOCYTES % (AUTO) 4.9 % (2.0-12.0); NEUTROPHILS # (AUTO) 8.1 K/uL (1.8-8.9); NEUTROPHILS % (AUTO) 83.3 % (43.0-81.0); PLATELET COUNT (AUTO) 181 K/uL (150-450); RED BLOOD CELL COUNT(AUTO) 2.95 MIL/uL (4.5-6.0); RED CELL DISTRIBUTION WIDTH 21.3 % (11.5-15.0); WHITE BLOOD COUNT (AUTO) 9.7 K/uL (4.3-11.0)
[2025-03-11 08:00] LABS: CALCIUM, SERUM 8.1 mg/dL (8.5-10.1); CREATININE 2.1 mg/dL (0.6-1.3); POTASSIUM 3.1 mmol/L (3.5-5.1)
[2025-03-11] MEDS: POTASSIUM CL. PREMIX PERIPHER. 50 ML IV SCH (11:02)
[2025-03-11 16:08] LABS: OCCULT BLOOD STOOL NEGATIVE (NEGATIVE)
[2025-03-11] MEDS: APIXABAN 5 MG TABLET PO SCH (18:12)
[2025-03-12] VITALS (8 sets, daily range): BP systolic 106–122; BP diastolic 59–75; TEMP 97.3–98.4; O2SAT 99–100
[2025-03-12 06:34] LABS: BASOPHILS % (AUTO) 0.3 % (0.0-2.0); EOSINOPHILS # (AUTO) 0.1 K/uL (0.0-0.7); HEMATOCRIT 23 % (39-51); HEMOGLOBIN 7.6 g/dL (13.5-17.5); LYMPHOCYTES # (AUTO) 1.4 K/uL (0.8-4.8); LYMPHOCYTES % (AUTO) 16.7 % (20.0-44.0); MEAN CORPUSCULAR HEMOGLOBIN 25 PG (26.0-33.0); MEAN CORPUSCULAR HGB CONC 33 g/dl (31.0-36.0); MEAN CORPUSCULAR VOLUME 76 fL (80-96); MONOCYTES # (AUTO) 0.5 K/uL (0.1-1.30); MONOCYTES % (AUTO) 6.5 % (2.0-12.0); NEUTROPHILS # (AUTO) 6.2 K/uL (1.8-8.9); NEUTROPHILS % (AUTO) 75.5 % (43.0-81.0); PLATELET COUNT (AUTO) 220 K/uL (150-450); RED BLOOD CELL COUNT(AUTO) 3.05 MIL/uL (4.5-6.0); RED CELL DISTRIBUTION WIDTH 22.2 % (11.5-15.0); WHITE BLOOD COUNT (AUTO) 8.2 K/uL (4.3-11.0)
[2025-03-12 07:07] LABS: CALCIUM, SERUM 8.4 mg/dL (8.5-10.1); CREATININE 2.7 mg/dL (0.6-1.3); MAGNESIUM 2.2 mg/dL (1.8-2.4); PHOSPHORUS 2.7 mg/dL (2.5-4.9); POTASSIUM 3.2 mmol/L (3.5-5.1)
[2025-03-13] VITALS: BP 137/56; TEMP 97.5; O2SAT 100
[2025-03-13] MEDS: ACETAMINOPHEN 325 MG TABLET PO PRN (01:38)
[2025-03-13 04:00] VITALS: BP 127/62; TEMP 98.1; O2SAT 100
[2025-03-13 08:00] VITALS: BP 104/66; TEMP 98.2; O2SAT 100
[2025-03-13] MEDS: BLOOD SUGAR DIAGNOSTIC 1 EACH STRIP IN SCH (12:08)
[2025-03-13 16:00] VITALS: BP 87/55; TEMP 97.9; O2SAT 100
[2025-03-13 20:00] VITALS: BP 97/60; TEMP 98.6; O2SAT 100
[2025-03-14] VITALS: BP 106/64; TEMP 98.2; O2SAT 100
[2025-03-14 04:00] VITALS: BP 106/76; TEMP 97.5; O2SAT 100
[2025-03-14 07:30] VITALS: BP 108/69; TEMP 98.1; O2SAT 97
[2025-03-14 07:34] LABS: BASOPHILS % (AUTO) 0.5 % (0.0-2.0); EOSINOPHILS # (AUTO) 0.1 K/uL (0.0-0.7); EOSINOPHILS % (AUTO) 1.3 % (0.0-6.0); HEMATOCRIT 24 % (39-51); HEMOGLOBIN 7.8 g/dL (13.5-17.5); LYMPHOCYTES # (AUTO) 1.4 K/uL (0.8-4.8); LYMPHOCYTES % (AUTO) 15.8 % (20.0-44.0); MEAN CORPUSCULAR HEMOGLOBIN 25 PG (26.0-33.0); MEAN CORPUSCULAR HGB CONC 33 g/dl (31.0-36.0); MEAN CORPUSCULAR VOLUME 78 fL (80-96); MONOCYTES # (AUTO) 0.6 K/uL (0.1-1.30); MONOCYTES % (AUTO) 6.4 % (2.0-12.0); NEUTROPHILS # (AUTO) 6.7 K/uL (1.8-8.9); PLATELET COUNT (AUTO) 229 K/uL (150-450); RED BLOOD CELL COUNT(AUTO) 3.08 MIL/uL (4.5-6.0); WHITE BLOOD COUNT (AUTO) 8.8 K/uL (4.3-11.0)
[2025-03-14 07:58] LABS: CALCIUM, SERUM 9.1 mg/dL (8.5-10.1); CREATININE 3.7 mg/dL (0.6-1.3); POTASSIUM 3.6 mmol/L (3.5-5.1)
[2025-03-14 15:43] VITALS: BP 107/58; TEMP 98.2; O2SAT 99
[2025-03-14] MEDS ORDERED: CEFT1VIA14 IJ (17:35)
[2025-03-14] MEDS ORDERED: APIX5TAB PO (17:35)
[2025-03-14 22:05] VITALS: BP 140/86; TEMP 98.1; O2SAT 100
[2025-03-15] VITALS: BP 134/71; TEMP 98.1; O2SAT 100
[2025-03-15 04:00] VITALS: BP 138/78; TEMP 98.1; O2SAT 100
[2025-03-15 06:42] LABS: CALCIUM, SERUM 9.4 mg/dL (8.5-10.1); MAGNESIUM 2.9 mg/dL (1.8-2.4); PHOSPHORUS 3.5 mg/dL (2.5-4.9); POTASSIUM 3.4 mmol/L (3.5-5.1)
[2025-03-15 06:51] LABS: BASOPHILS % (AUTO) 0.4 % (0.0-2.0); EOSINOPHILS # (AUTO) 0.1 K/uL (0.0-0.7); EOSINOPHILS % (AUTO) 1.2 % (0.0-6.0); HEMATOCRIT 26 % (39-51); HEMOGLOBIN 8.3 g/dL (13.5-17.5); LYMPHOCYTES # (AUTO) 1.2 K/uL (0.8-4.8); MEAN CORPUSCULAR HEMOGLOBIN 25 PG (26.0-33.0); MEAN CORPUSCULAR HGB CONC 32 g/dl (31.0-36.0); MEAN CORPUSCULAR VOLUME 79 fL (80-96); MONOCYTES # (AUTO) 0.4 K/uL (0.1-1.30); NEUTROPHILS # (AUTO) 6.5 K/uL (1.8-8.9); NEUTROPHILS % (AUTO) 78.4 % (43.0-81.0); PLATELET COUNT (AUTO) 237 K/uL (150-450); RED BLOOD CELL COUNT(AUTO) 3.27 MIL/uL (4.5-6.0); RED CELL DISTRIBUTION WIDTH 23.5 % (11.5-15.0); WHITE BLOOD COUNT (AUTO) 8.3 K/uL (4.3-11.0)
[2025-03-15 07:30] VITALS: BP 100/61; TEMP 98.6; O2SAT 100
[2025-03-15 16:09] VITALS: BP 97/63; TEMP 99.1; O2SAT 99
[2025-03-15 20:00] VITALS: BP 121/72; TEMP 97.5; O2SAT 100
[2025-03-16 00:32] VITALS: BP 136/80; TEMP 98.2; O2SAT 100
[2025-03-16 04:00] VITALS: BP 124/74; TEMP 97.7; O2SAT 100
[2025-03-16 07:16] LABS: BASOPHILS % (AUTO) 0.3 % (0.0-2.0); EOSINOPHILS # (AUTO) 0.2 K/uL (0.0-0.7); EOSINOPHILS % (AUTO) 1.9 % (0.0-6.0); HEMATOCRIT 25 % (39-51); HEMOGLOBIN 8.1 g/dL (13.5-17.5); LYMPHOCYTES # (AUTO) 1.8 K/uL (0.8-4.8); LYMPHOCYTES % (AUTO) 18.2 % (20.0-44.0); MEAN CORPUSCULAR HEMOGLOBIN 26 PG (26.0-33.0); MEAN CORPUSCULAR HGB CONC 33 g/dl (31.0-36.0); MEAN CORPUSCULAR VOLUME 78 fL (80-96); MONOCYTES # (AUTO) 0.7 K/uL (0.1-1.30); MONOCYTES % (AUTO) 7.3 % (2.0-12.0); NEUTROPHILS % (AUTO) 72.3 % (43.0-81.0); PLATELET COUNT (AUTO) 261 K/uL (150-450); RED BLOOD CELL COUNT(AUTO) 3.16 MIL/uL (4.5-6.0); RED CELL DISTRIBUTION WIDTH 24.5 % (11.5-15.0); WHITE BLOOD COUNT (AUTO) 9.7 K/uL (4.3-11.0)
[2025-03-16 07:55] LABS: CALCIUM, SERUM 9.6 mg/dL (8.5-10.1); CREATININE 4.3 mg/dL (0.6-1.3); POTASSIUM 3.5 mmol/L (3.5-5.1)
[2025-03-16 08:00] VITALS: BP 92/64; TEMP 97.3; O2SAT 99
[2025-03-16 12:00] VITALS: BP 107/64; TEMP 98.1; O2SAT 100
== END 2025-03-16 13:30 | DRG 871 ==
LOC: ER 11:01 → TELE1 13:43 → ICU 22:30 → TELE 03-04 17:51 → UNDODISIN 03-14 20:40
PROVIDERS: ADMIT Nurse Practitioner Acute Care; ATTEND Internal Medicine
PROC: 5A1D70Z Performance of Urinary Filtration, Intermittent, Less than 6 Hours Per Day (ICD-10-PCS; principal; 2025-03-04)
PROC: 05HB33Z Insertion of Infusion Device into Right Basilic Vein, Percutaneous Approach (ICD-10-PCS; 2025-03-04)
PROC: 06HY33Z Insertion of Infusion Device into Lower Vein, Percutaneous Approach (ICD-10-PCS; 2025-03-04)
PROC: B54MZZA Ultrasonography of Right Upper Extremity Veins, Guidance (ICD-10-PCS; 2025-03-04)
PROC: 30233N1 Transfusion of Nonautologous Red Blood Cells into Peripheral Vein, Percutaneous Approach (ICD-10-PCS; 2025-03-07)
PROC: 0DH63UZ Insertion of Feeding Device into Stomach, Percutaneous Approach (ICD-10-PCS; 2025-03-10)
PROC: 0JH63XZ Insertion of Tunneled Vascular Access Device into Chest Subcutaneous Tissue and Fascia, Percutaneous Approach (ICD-10-PCS; 2025-03-10)
PROC: 02HV33Z Insertion of Infusion Device into Superior Vena Cava, Percutaneous Approach (ICD-10-PCS; 2025-03-10)
PROC: B518YZA Fluoroscopy of Superior Vena Cava using Other Contrast, Guidance (ICD-10-PCS; 2025-03-10)
DX: A41.9 Sepsis, unspecified organism (principal); E43 Unspecified severe protein-calorie malnutrition; G93.41 Metabolic encephalopathy; I21.A1 Myocardial infarction type 2; J96.01 Acute respiratory failure with hypoxia; N17.0 Acute kidney failure with tubular necrosis; I26.99 Other pulmonary embolism without acute cor pulmonale; D68.59 Other primary thrombophilia; N39.0 Urinary tract infection, site not specified; R64 Cachexia; E87.20 Acidosis, unspecified; E87.0 Hyperosmolality and hypernatremia; Z68.1 Body mass index [BMI] 19.9 or less, adult; N18.9 Chronic kidney disease, unspecified; I12.9 Hypertensive chronic kidney disease with stage 1 through stage 4 chronic kidney disease, or unspecified chronic kidney disease; R65.20 Severe sepsis without septic shock; D50.9 Iron deficiency anemia, unspecified; E03.9 Hypothyroidism, unspecified; K29.70 Gastritis, unspecified, without bleeding; K29.80 Duodenitis without bleeding; K21.9 Gastro-esophageal reflux disease without esophagitis; R62.7 Adult failure to thrive; R13.10 Dysphagia, unspecified; R53.1 Weakness; F03.90 Unspecified dementia, unspecified severity, without behavioral disturbance, psychotic disturbance, mood disturbance, and anxiety; E78.5 Hyperlipidemia, unspecified; D64.9 Anemia, unspecified; N40.0 Benign prostatic hyperplasia without lower urinary tract symptoms; R74.01 Elevation of levels of liver transaminase levels; B18.2 Chronic viral hepatitis C; E87.5 Hyperkalemia; L98.8 Other specified disorders of the skin and subcutaneous tissue; L89.326 Pressure-induced deep tissue damage of left buttock; L89.156 Pressure-induced deep tissue damage of sacral region; L89.626 Pressure-induced deep tissue damage of left heel; L89.616 Pressure-induced deep tissue damage of right heel; N25.0 Renal osteodystrophy; M62.50 Muscle wasting and atrophy, not elsewhere classified, unspecified site; B96.89 Other specified bacterial agents as the cause of diseases classified elsewhere; K44.9 Diaphragmatic hernia without obstruction or gangrene; F20.9 Schizophrenia, unspecified
CPT/HCPCS: 36415; 43246; 70450-TC; 71045-TC; 76700-TC; 76770-TC; 80048-TC; 80053-TC; 80061-TC; 80076-TC; 81001; 82140-TC; 82272-TC; 82570-TC; 82962-TC; 83605-TC; 83735-TC; 83880; 84100-TC; 84300-TC; 84484-TC; 85025-TC; 85027-TC; 85610-TC; 85730-TC; 86704; 86706; 86709; 86803; 86850; 86850-TC; 86870; 86880; 86900; 86901; 86905; 86906; 87040-TC; 87081-TC; 87086-TC; 87186-TC; 87340; 90935-TC; 92526; 92611-TC; 93970-TC; A4216; A4223; C1750; C1769; G0378; J0612; J0692; J0696; J1644; J1650; J1815; J2470; J2704; J2916; J3370; J3480; J3490; J7030; J7040; J7050; J7060; P9016; P9047; Q9966; Q9967

== ENCOUNTER 2025-03-18 15:16 | Inpatient (IN) | payer MEDICARE, OTHER ==
[~2025-03-18] VITALS: Ht 172.7 cm; Wt 51.7 kg
[~2025-03-18 15:16] MED LIST changes: +ACET325T53 GT; -ALBU8.5H8 IH; +APIX5TAB PO; -ASPI-1169 PO; -CEFD300C3 PO; +CEFT1VIA14 IJ; +FINA5TAB11 GT; +MAG30ORA GT; +MAGN400O6 GT; +PANT40TA49 GT
[2025-03-18 15:38] LABS: BASOPHILS % (AUTO) 0.5 % (0.0-2.0); EOSINOPHILS # (AUTO) 0.1 K/uL (0.0-0.7); EOSINOPHILS % (AUTO) 1.3 % (0.0-6.0); HEMATOCRIT 26 % (39-51); HEMOGLOBIN 8.5 g/dL (13.5-17.5); LYMPHOCYTES # (AUTO) 1.7 K/uL (0.8-4.8); LYMPHOCYTES % (AUTO) 16.5 % (20.0-44.0); MEAN CORPUSCULAR HEMOGLOBIN 25 PG (26.0-33.0); MEAN CORPUSCULAR HGB CONC 32 g/dl (31.0-36.0); MEAN CORPUSCULAR VOLUME 78 fL (80-96); MONOCYTES # (AUTO) 0.6 K/uL (0.1-1.30); MONOCYTES % (AUTO) 5.5 % (2.0-12.0); NEUTROPHILS # (AUTO) 8.1 K/uL (1.8-8.9); NEUTROPHILS % (AUTO) 76.2 % (43.0-81.0); PLATELET COUNT (AUTO) 229 K/uL (150-450); RED BLOOD CELL COUNT(AUTO) 3.37 MIL/uL (4.5-6.0); RED CELL DISTRIBUTION WIDTH 24.7 % (11.5-15.0); WHITE BLOOD COUNT (AUTO) 10.6 K/uL (4.3-11.0)
[2025-03-18 15:48] LABS: CALCIUM, SERUM 9.5 mg/dL (8.5-10.1); CARBON DIOXIDE 27 mmol/L (21-32); CHLORIDE 104 mmol/L (98-107); CREATININE 5.6 mg/dL (0.6-1.3); GLUCOSE 134 mg/dL (74-106); POTASSIUM 3.5 mmol/L (3.5-5.1); SODIUM SERUM 142 mmol/L (136-145)
[2025-03-18 15:50] LABS: UREA NITROGEN, BLOOD 131 mg/dL (7-18)
[2025-03-18 15:51] LABS: INR 1.06 (0.91-1.10); PARTIAL THROMBOPLASTIN TIME 26.2 SEC (24.3-34.3); PROTHROMBIN TIME 10.9 SECS (9.2-11.1)
[2025-03-18 15:56] LABS: LACTIC ACID 0.9 mmol/L (0.4-2.0)
[2025-03-18 16:01] LABS: NT-PRO BNP 849 pg/mL (0-125)
[2025-03-18] MEDS ORDERED: NUT.237L67 GT (16:03)
[2025-03-18] MEDS ORDERED: POVI1MED TP (16:03)
[2025-03-18] MEDS ORDERED: HONE44PA TP (16:03)
[2025-03-18] MEDS ORDERED: FOLI0.8T43 GT (16:03)
[2025-03-18] MEDS ORDERED: MAGNESIUM HYDROXIDE 30 ML UDC GT PRN (17:30)
[2025-03-18] MEDS ORDERED: NEPRO VAN 237 ML CAN GT SCH (17:30)
[2025-03-18] MEDS ORDERED: ACETAMINOPHEN 325 MG TABLET MC PRN (17:30)
[2025-03-18] MEDS ORDERED: MAG HYDROX/AL HYDROX/SIMETH 30 ML UDC GT PRN (17:30)
[2025-03-18 18:00] VITALS: BP 99/65; TEMP 97.5; O2SAT 99
[2025-03-18 20:00] VITALS: BP 106/67; TEMP 98.1; O2SAT 99
[2025-03-18] MEDS: NEPRO 1,000 ML BOTTLE GT PRN (20:53)
[2025-03-18] MEDS: FINASTERIDE (5 MG) 5 MG TABLET GT SCH (21:36)
[2025-03-18] MEDS: LATANOPROST EYE DROP 0.005% 2.5 ML BOTTLE EACHEYE SCH (21:36)
[2025-03-19] VITALS: BP 119/81; TEMP 97.7; O2SAT 100
[2025-03-19 04:00] VITALS: BP 100/70; TEMP 97.7; O2SAT 99
[2025-03-19 08:00] VITALS: BP 113/80; TEMP 97.2; O2SAT 100
[2025-03-19] MEDS: PANTOPRAZOLE 40 MG TABLET.DR PO SCH (08:31)
[2025-03-19] MEDS: TAMSULOSIN 0.4 MG CAP.SR.24H GT SCH (08:31)
[2025-03-19] MEDS: HALOPERIDOL 1 MG TABLET GT SCH (08:31)
[2025-03-19] MEDS ORDERED: DAKINS QUARTER STRENGTH (0.125%) 480 ML BOTTLE TOP SCH (09:00)
[2025-03-19] MEDS: THERAHONEY GEL 1.5 OZ TUBE TP SCH (09:22)
[2025-03-19] MEDS: DAKINS QUARTER STRENGTH (0.125%) 480 ML BOTTLE TOP SCH (09:22)
[2025-03-19] MEDS ORDERED: MAG HYDROX/AL HYDROX/SIMETH 30 ML UDC PO PRN (10:30)
[2025-03-19] MEDS ORDERED: MAGNESIUM HYDROXIDE 30 ML UDC PO PRN (10:30)
[2025-03-19] MEDS ORDERED: ACETAMINOPHEN 325 MG TABLET PO PRN (10:30)
[2025-03-19] MEDS ORDERED: ONDANSETRON HCL/PF 4 MG/2 ML VIAL IVP PRN (10:30)
[2025-03-19 16:00] VITALS: BP 96/66; TEMP 97.4; O2SAT 99
[2025-03-19] MEDS: ALBUMIN 25% 25 GM in PREMIX 1 EA IV PRN (19:11)
[2025-03-19 20:00] VITALS: BP_SYST 105; BP_SYST 110; BP_DIAS 70; BP_DIAS 78; TEMP 97.9; O2SAT 100; O2SAT 99
[2025-03-20] VITALS: BP 98/61; TEMP 98.8; O2SAT 97
[2025-03-20 04:00] VITALS: BP 95/63; TEMP 98.1; O2SAT 100
[2025-03-20 07:00] VITALS: BP 94/68; TEMP 97.9; O2SAT 98
[2025-03-20 07:04] LABS: BASOPHILS % (AUTO) 0.4 % (0.0-2.0); EOSINOPHILS # (AUTO) 0.2 K/uL (0.0-0.7); HEMATOCRIT 28 % (39-51); HEMOGLOBIN 8.7 g/dL (13.5-17.5); LYMPHOCYTES # (AUTO) 1.5 K/uL (0.8-4.8); LYMPHOCYTES % (AUTO) 14.1 % (20.0-44.0); MEAN CORPUSCULAR HEMOGLOBIN 26 PG (26.0-33.0); MEAN CORPUSCULAR HGB CONC 31 g/dl (31.0-36.0); MEAN CORPUSCULAR VOLUME 83 fL (80-96); MONOCYTES # (AUTO) 0.6 K/uL (0.1-1.30); MONOCYTES % (AUTO) 6.2 % (2.0-12.0); NEUTROPHILS % (AUTO) 77.3 % (43.0-81.0); PLATELET COUNT (AUTO) 229 K/uL (150-450); RED CELL DISTRIBUTION WIDTH 24.6 % (11.5-15.0); WHITE BLOOD COUNT (AUTO) 10.3 K/uL (4.3-11.0)
[2025-03-20 07:18] LABS: CALCIUM, SERUM 9.5 mg/dL (8.5-10.1); CREATININE 4.7 mg/dL (0.6-1.3); PHOSPHORUS 4.2 mg/dL (2.5-4.9); POTASSIUM 3.4 mmol/L (3.5-5.1)
[2025-03-20 13:30] VITALS: BP 97/78; TEMP 97.9; O2SAT 99
[2025-03-20 16:00] VITALS: BP 103/72; TEMP 97.7; O2SAT 98
[2025-03-20 20:00] VITALS: BP 104/69; TEMP 97.3; O2SAT 100
[2025-03-21] VITALS: BP 110/72; TEMP 97.5; O2SAT 98
[2025-03-21 04:00] VITALS: BP 105/72; TEMP 98.1; O2SAT 100
[2025-03-21 07:59] LABS: BASOPHILS % (AUTO) 0.4 % (0.0-2.0); EOSINOPHILS # (AUTO) 0.2 K/uL (0.0-0.7); EOSINOPHILS % (AUTO) 1.9 % (0.0-6.0); HEMATOCRIT 27 % (39-51); HEMOGLOBIN 8.6 g/dL (13.5-17.5); LYMPHOCYTES # (AUTO) 1.2 K/uL (0.8-4.8); LYMPHOCYTES % (AUTO) 11.9 % (20.0-44.0); MEAN CORPUSCULAR HEMOGLOBIN 26 PG (26.0-33.0); MEAN CORPUSCULAR HGB CONC 32 g/dl (31.0-36.0); MEAN CORPUSCULAR VOLUME 81 fL (80-96); MONOCYTES # (AUTO) 0.7 K/uL (0.1-1.30); MONOCYTES % (AUTO) 6.4 % (2.0-12.0); NEUTROPHILS # (AUTO) 8.1 K/uL (1.8-8.9); NEUTROPHILS % (AUTO) 79.4 % (43.0-81.0); PLATELET COUNT (AUTO) 224 K/uL (150-450); RED BLOOD CELL COUNT(AUTO) 3.33 MIL/uL (4.5-6.0); RED CELL DISTRIBUTION WIDTH 24.5 % (11.5-15.0); WHITE BLOOD COUNT (AUTO) 10.2 K/uL (4.3-11.0)
[2025-03-21 08:00] VITALS: BP 100/68; TEMP 97.3; O2SAT 97
[2025-03-21 08:37] LABS: CALCIUM, SERUM 9.3 mg/dL (8.5-10.1); CREATININE 5.1 mg/dL (0.6-1.3); POTASSIUM 3.2 mmol/L (3.5-5.1)
[2025-03-21 12:00] VITALS: BP 100/65; TEMP 98.1; O2SAT 98
[2025-03-21 16:00] VITALS: BP 110/68; TEMP 98.2; O2SAT 90
[2025-03-21] MEDS: ALBUMIN 25% 25 GM in PREMIX 1 EA IV PRN (19:46)
[2025-03-21 20:00] VITALS: BP 92/54; TEMP 97.7; O2SAT 99
[2025-03-21 22:54] LABS: CALCIUM, SERUM 9.1 mg/dL (8.5-10.1); CREATININE 3.1 mg/dL (0.6-1.3); POTASSIUM 3.5 mmol/L (3.5-5.1)
[2025-03-22] VITALS: BP 118/64; TEMP 97.5; O2SAT 100
[2025-03-22 04:00] VITALS: BP 95/59; TEMP 97.9; O2SAT 100
[2025-03-22 07:00] VITALS: BP 103/62; TEMP 97.9; O2SAT 100
[2025-03-22 07:15] LABS: BASOPHILS % (AUTO) 0.2 % (0.0-2.0); EOSINOPHILS # (AUTO) 0.3 K/uL (0.0-0.7); HEMATOCRIT 23 % (39-51); HEMOGLOBIN 7.5 g/dL (13.5-17.5); LYMPHOCYTES # (AUTO) 1.5 K/uL (0.8-4.8); LYMPHOCYTES % (AUTO) 17.9 % (20.0-44.0); MEAN CORPUSCULAR HEMOGLOBIN 26 PG (26.0-33.0); MEAN CORPUSCULAR HGB CONC 33 g/dl (31.0-36.0); MEAN CORPUSCULAR VOLUME 81 fL (80-96); MONOCYTES # (AUTO) 0.5 K/uL (0.1-1.30); MONOCYTES % (AUTO) 5.9 % (2.0-12.0); NEUTROPHILS # (AUTO) 6.2 K/uL (1.8-8.9); PLATELET COUNT (AUTO) 191 K/uL (150-450); RED BLOOD CELL COUNT(AUTO) 2.87 MIL/uL (4.5-6.0); WHITE BLOOD COUNT (AUTO) 8.5 K/uL (4.3-11.0)
[2025-03-22 07:41] LABS: CALCIUM, SERUM 9.5 mg/dL (8.5-10.1); CREATININE 3.3 mg/dL (0.6-1.3); POTASSIUM 3.5 mmol/L (3.5-5.1)
[2025-03-22 12:00] VITALS: BP 100/65; TEMP 97.9; O2SAT 100
[2025-03-22 16:00] VITALS: BP 99/67; TEMP 97.7; O2SAT 100
[2025-03-22 20:00] VITALS: BP 104/69; TEMP 97.3; O2SAT 100
[2025-03-23] VITALS: BP 106/78; TEMP 98.1; O2SAT 99
[2025-03-23 04:00] VITALS: BP 98/61; TEMP 98.4; O2SAT 98
[2025-03-23 07:49] LABS: CALCIUM, SERUM 9.7 mg/dL (8.5-10.1); CREATININE 4.2 mg/dL (0.6-1.3); POTASSIUM 3.7 mmol/L (3.5-5.1)
[2025-03-23 07:59] LABS: BASOPHILS % (AUTO) 0.3 % (0.0-2.0); EOSINOPHILS # (AUTO) 0.2 K/uL (0.0-0.7); EOSINOPHILS % (AUTO) 1.6 % (0.0-6.0); HEMATOCRIT 29 % (39-51); HEMOGLOBIN 8.9 g/dL (13.5-17.5); LYMPHOCYTES # (AUTO) 1.6 K/uL (0.8-4.8); LYMPHOCYTES % (AUTO) 15.4 % (20.0-44.0); MEAN CORPUSCULAR HEMOGLOBIN 26 PG (26.0-33.0); MEAN CORPUSCULAR HGB CONC 31 g/dl (31.0-36.0); MEAN CORPUSCULAR VOLUME 83 fL (80-96); MONOCYTES # (AUTO) 0.6 K/uL (0.1-1.30); MONOCYTES % (AUTO) 5.8 % (2.0-12.0); NEUTROPHILS # (AUTO) 7.9 K/uL (1.8-8.9); NEUTROPHILS % (AUTO) 76.9 % (43.0-81.0); PLATELET COUNT (AUTO) 226 K/uL (150-450); RED BLOOD CELL COUNT(AUTO) 3.48 MIL/uL (4.5-6.0); RED CELL DISTRIBUTION WIDTH 25.1 % (11.5-15.0); WHITE BLOOD COUNT (AUTO) 10.3 K/uL (4.3-11.0)
[2025-03-23 08:00] VITALS: BP 90/58; TEMP 97.5; O2SAT 100
[2025-03-23] MEDS ORDERED: APIX5TAB PO (09:09)
[2025-03-23] MEDS: Z GUARD REMEDY 4 OZ OINT TP PRN (10:04)
[2025-03-23 16:19] VITALS: BP 94/67; TEMP 97.9; O2SAT 96
== END 2025-03-23 18:30 | DRG 640 ==
LOC: ER 15:20 → TELE 17:40
PROVIDERS: ADMIT Internal Medicine; ATTEND Internal Medicine
PROC: 5A1D70Z Performance of Urinary Filtration, Intermittent, Less than 6 Hours Per Day (ICD-10-PCS; principal; 2025-03-19)
DX: E87.79 Other fluid overload (principal); E43 Unspecified severe protein-calorie malnutrition; N18.6 End stage renal disease; I12.0 Hypertensive chronic kidney disease with stage 5 chronic kidney disease or end stage renal disease; D68.59 Other primary thrombophilia; R64 Cachexia; Z68.1 Body mass index [BMI] 19.9 or less, adult; Z91.158 Patient's noncompliance with renal dialysis for other reason; Z99.2 Dependence on renal dialysis; N40.0 Benign prostatic hyperplasia without lower urinary tract symptoms; B18.2 Chronic viral hepatitis C; E03.9 Hypothyroidism, unspecified; K21.9 Gastro-esophageal reflux disease without esophagitis; L89.150 Pressure ulcer of sacral region, unstageable; L89.620 Pressure ulcer of left heel, unstageable; L89.610 Pressure ulcer of right heel, unstageable; F03.90 Unspecified dementia, unspecified severity, without behavioral disturbance, psychotic disturbance, mood disturbance, and anxiety; F20.9 Schizophrenia, unspecified; Z86.711 Personal history of pulmonary embolism; Z93.1 Gastrostomy status; Z79.899 Other long term (current) drug therapy; R13.10 Dysphagia, unspecified; E78.5 Hyperlipidemia, unspecified; D50.9 Iron deficiency anemia, unspecified; Z74.09 Other reduced mobility
CPT/HCPCS: 36415; 71045-TC; 80048-TC; 83605-TC; 83735-TC; 83880; 84100-TC; 84484-TC; 85025-TC; 85730-TC; 87040-TC; 90935-TC; A4216; A6253; A6403; G0378; J7030; P9047

== ENCOUNTER 2025-06-29 13:27 | Inpatient (IN) | payer MEDICARE, OTHER ==
[~2025-06-29] VITALS: Ht 167.6 cm; Wt 49.0 kg
[~2025-06-29 13:27] MED LIST changes: +ACET-73 GT; +ACET160L44 GT; -ACET325T53 GT; -APIX5TAB PO; +ASCO-352 GT; -ATOR20TA GT; -CEFT1VIA14 IJ; +EPOE1VIA6 SQ; +ESOM40SU2 GT; -FINA5TAB11 GT; +FOLI0.8T43 GT; +FURO80TA3 GT; -HALO2TAB GT; +HONE44PA TP; +INSU100V42 SQ; -LATA7.5D EACHEYE; +LEVO250S3 PO; -MAG30ORA GT; -MAGN400O6 GT; +MIDO5TAB4 GT; +NUT.237L67 GT; +NUTR1PAC14 GT; -PANT40TA49 GT; +POVI1MED TP; -TAMS-12 GT; +ZINC220C6 GT
[2025-06-29] MEDS ORDERED: [UNRECOGNIZED DRUG - CODE] TP (15:13)
[2025-06-29] MEDS ORDERED: ESCI10TA GT (15:13)
[2025-06-29 15:14] LABS: PLATELET COUNT (AUTO) 276 K/uL (150-450); RED BLOOD CELL COUNT(AUTO) 3.09 MIL/uL (4.5-6.0); RED CELL DISTRIBUTION WIDTH 17.2 % (11.5-15.0); WHITE BLOOD COUNT (AUTO) 10.7 K/uL (4.3-11.0)
[2025-06-29 15:19] LABS: CALCIUM, SERUM 9.3 mg/dL (8.5-10.1); CREATININE 2.4 mg/dL (0.6-1.3); SODIUM SERUM 136.0 mmol/L (136-145); UREA NITROGEN, BLOOD 58.0 mg/dL (7-18)
[2025-06-29 15:25] LABS: APPEARANCE,URINE CLOUDY (CLEAR); BLOOD, URINE 3+ Ery/uL (NEGATIVE)
[2025-06-29 15:26] LABS: LEUKOCYTE ESTERASE ,URINE 3+ (NEGATIVE); UGLUCOSE NEGATIVE (NEGATIVE)
[2025-06-29 15:27] LABS: NITRITE, URINE NEGATIVE (NEGATIVE)
[2025-06-29 15:30] LABS: INR 0.98 (0.91-1.10)
[2025-06-29 15:33] LABS: ADD URINE CULTURE YES; SQUAMOUS EPITHELIAL CELL,UR 0-2 /HPF (None Seen)
[2025-06-29] MEDS: CIPROFLOXACIN IV RTU 400 MG in PREMIX 1 EA IV STA (16:48)
[2025-06-29 18:40] VITALS: BP 101/60; TEMP 98.8; O2SAT 99
[2025-06-29] MEDS ORDERED: MAGNESIUM HYDROXIDE 30 ML UDC PO PRN (19:30)
[2025-06-29] MEDS ORDERED: ONDANSETRON HCL/PF 4 MG/2 ML VIAL IVP PRN (19:30)
[2025-06-29] MEDS ORDERED: Z GUARD REMEDY 4 OZ OINT TP PRN (19:30)
[2025-06-29 20:00] VITALS: BP 107/71; TEMP 98; O2SAT 100
[2025-06-29 20:01] LABS: BAND % (MANUAL) 1 % (0.0-5.0); EOSINOPHILS % (MANUAL) 1 % (0-4); LYMPHOCYTES % (MANUAL) 13 % (16-48); MONOCYTES % (MANUAL) 4 % (0-11.0); NEUTROPHILS % (MANUAL) 81 (42-76)
[2025-06-29 20:02] LABS: PLATELET ESTIMATE ADEQUATE
[2025-06-29] MEDS: IV 1/2NS 1000 ML 1,000 ML IV SCH (20:15)
[2025-06-29] MEDS: MEROPENEM 500 MG in IV NS 0.9% 50 ML IV SCH (20:57)
[2025-06-30] VITALS: BP 105/77; TEMP 98; O2SAT 100
[2025-06-30 04:00] VITALS: BP 103/67; TEMP 97.9; O2SAT 100
[2025-06-30 06:13] LABS: PLATELET COUNT (AUTO) 270 K/uL (150-450); RED BLOOD CELL COUNT(AUTO) 2.90 MIL/uL (4.5-6.0); RED CELL DISTRIBUTION WIDTH 17.2 % (11.5-15.0); WHITE BLOOD COUNT (AUTO) 8.8 K/uL (4.3-11.0)
[2025-06-30 06:39] LABS: CALCIUM, SERUM 9.3 mg/dL (8.5-10.1); CREATININE 2.5 mg/dL (0.6-1.3); PHOSPHORUS 3.5 mg/dL (2.5-4.9); SODIUM SERUM 140.0 mmol/L (136-145); UREA NITROGEN, BLOOD 56.0 mg/dL (7-18)
[2025-06-30] MEDS ORDERED: NEPRO VAN 237 ML CAN GT SCH (07:30)
[2025-06-30 08:00] VITALS: BP 110/70; TEMP 97.8; O2SAT 100
[2025-06-30] MEDS: IV 1/2NS 1000 ML 1,000 ML IV SCH (08:02)
[2025-06-30] MEDS: MIDODRINE HCL (5MG) 5 MG TABLET GT SCH (09:29)
[2025-06-30] MEDS: NEPRO 1,000 ML BOTTLE GT PRN (12:25)
[2025-06-30] MEDS: POTASSIUM CHLORIDE 20 MEQ POWDER PACKET GT ONE (13:51)
[2025-06-30] MEDS: THERAHONEY GEL 1.5 OZ TUBE TP SCH (13:52)
[2025-06-30 16:00] VITALS: BP 112/69; TEMP 98.2; O2SAT 100
[2025-06-30 20:00] VITALS: BP 112/63; TEMP 98.5; O2SAT 100
[2025-06-30] MEDS: MUPIROCIN OINT 2% 22 GM TUBE NS SCH (21:04)
[2025-06-30] MEDS ORDERED: ALBUMIN 25% 100 ML IV ONE (21:11)
[2025-06-30] MEDS: ALBUMIN 25% 25 GM in PREMIX 1 EA IV PRN (21:12)
[2025-06-30] MEDS: ESCITALOPRAM OXALATE (10 MG) 10 MG TABLET GT SCH (23:43)
[2025-07-01] VITALS: BP 101/57; TEMP 98.3; O2SAT 99
[2025-07-01 04:00] VITALS: BP 103/51; TEMP 98.4; O2SAT 99
[2025-07-01 06:51] LABS: PLATELET COUNT (AUTO) 246 K/uL (150-450); RED BLOOD CELL COUNT(AUTO) 3.04 MIL/uL (4.5-6.0); RED CELL DISTRIBUTION WIDTH 17.8 % (11.5-15.0); WHITE BLOOD COUNT (AUTO) 7.1 K/uL (4.3-11.0)
[2025-07-01 07:08] LABS: CALCIUM, SERUM 8.9 mg/dL (8.5-10.1); CREATININE 1.3 mg/dL (0.6-1.3); SODIUM SERUM 142.0 mmol/L (136-145); UREA NITROGEN, BLOOD 20.0 mg/dL (7-18)
[2025-07-01 08:00] VITALS: BP 106/56; TEMP 98.2; O2SAT 99
[2025-07-01] MEDS: DAKINS QUARTER STRENGTH (0.125%) 480 ML BOTTLE TOP SCH (08:41)
[2025-07-01 12:00] VITALS: BP 99/62; TEMP 98.5; O2SAT 99
[2025-07-01] MEDS: EPOETIN ALFA (10,000 UNIT) 10,000 UNIT/ML VIAL SQ SCH (14:13)
[2025-07-01 16:00] VITALS: BP 111/60; TEMP 98.3; O2SAT 99
[2025-07-01 20:00] VITALS: BP 100/71; TEMP 97.4; O2SAT 100
[2025-07-02] VITALS: BP 109/66; TEMP 97.8; O2SAT 100
[2025-07-02 04:00] VITALS: BP 116/70; TEMP 98.1; O2SAT 98
[2025-07-02 08:00] VITALS: BP 111/78; TEMP 97.6; O2SAT 98
[2025-07-02 12:00] VITALS: BP 111/79; TEMP 97.6; O2SAT 98
[2025-07-02] MEDS ORDERED: NEPRO 1,000 ML BOTTLE GT PRN (14:00)
[2025-07-02 16:00] VITALS: BP 113/74; TEMP 98.6; O2SAT 98
[2025-07-02 20:00] VITALS: BP 129/74; TEMP 97.5; O2SAT 100
[2025-07-03] MEDS: IV 1/2NS 1000 ML 1,000 ML IV PRN (02:05)
[2025-07-03 04:00] VITALS: BP 121/82; TEMP 99; O2SAT 100
[2025-07-03 07:07] LABS: PLATELET COUNT (AUTO) 234 K/uL (150-450); RED BLOOD CELL COUNT(AUTO) 3.09 MIL/uL (4.5-6.0); RED CELL DISTRIBUTION WIDTH 17.2 % (11.5-15.0); WHITE BLOOD COUNT (AUTO) 8.7 K/uL (4.3-11.0)
[2025-07-03 07:13] LABS: CALCIUM, SERUM 8.8 mg/dL (8.5-10.1); SODIUM SERUM 144.0 mmol/L (136-145); UREA NITROGEN, BLOOD 19.0 mg/dL (7-18)
[2025-07-03 07:24] LABS: CREATININE 1.4 mg/dL (0.6-1.3)
[2025-07-03 08:00] VITALS: BP 111/67; TEMP 97.1; O2SAT 100
[2025-07-03 12:00] VITALS: BP 111/67; TEMP 97.1; O2SAT 100
[2025-07-03 16:00] VITALS: BP 130/73; TEMP 98.6; O2SAT 100
[2025-07-03 20:00] VITALS: BP 127/75; TEMP 97.3; O2SAT 100
[2025-07-04 04:00] VITALS: BP 132/73; TEMP 97.7; O2SAT 100
[2025-07-04 08:00] VITALS: BP 120/74; TEMP 97.7; O2SAT 100
[2025-07-04] MEDS: ACETAMINOPHEN 325 MG TABLET PO PRN (09:08)
[2025-07-04] MEDS ORDERED: MERO500V23 IV (14:08)
[2025-07-04] MEDS ORDERED: COLL30OI TP (14:08)
[2025-07-04 16:00] VITALS: BP 119/56; TEMP 97.2; O2SAT 98
[2025-07-04 20:00] VITALS: BP 177/66; TEMP 97; O2SAT 100
[2025-07-05 04:00] VITALS: BP 114/61; TEMP 98.1; O2SAT 100
[2025-07-05 08:00] VITALS: BP 105/63; TEMP 97.7; O2SAT 100
[2025-07-05 08:51] VITALS: BP 105/63
== END 2025-07-05 10:50 | DRG 689 ==
LOC: ER 13:27 → MEDSG1 18:06 → TELE1 06-30 12:05 → MEDSG1 07-02 10:22
PROVIDERS: ADMIT Internal Medicine; ATTEND Nurse Practitioner Acute Care
PROC: 5A1D70Z Performance of Urinary Filtration, Intermittent, Less than 6 Hours Per Day (ICD-10-PCS; principal; 2025-06-30)
DX: N12 Tubulo-interstitial nephritis, not specified as acute or chronic (principal); E43 Unspecified severe protein-calorie malnutrition; L89.154 Pressure ulcer of sacral region, stage 4; G93.41 Metabolic encephalopathy; N18.6 End stage renal disease; I12.0 Hypertensive chronic kidney disease with stage 5 chronic kidney disease or end stage renal disease; D68.59 Other primary thrombophilia; R64 Cachexia; Z68.1 Body mass index [BMI] 19.9 or less, adult; N17.9 Acute kidney failure, unspecified; E03.9 Hypothyroidism, unspecified; E78.5 Hyperlipidemia, unspecified; F20.9 Schizophrenia, unspecified; K21.9 Gastro-esophageal reflux disease without esophagitis; Z99.2 Dependence on renal dialysis; B18.2 Chronic viral hepatitis C; D50.9 Iron deficiency anemia, unspecified; E87.6 Hypokalemia; F03.90 Unspecified dementia, unspecified severity, without behavioral disturbance, psychotic disturbance, mood disturbance, and anxiety; K80.20 Calculus of gallbladder without cholecystitis without obstruction; L89.210 Pressure ulcer of right hip, unstageable; L89.220 Pressure ulcer of left hip, unstageable; L89.610 Pressure ulcer of right heel, unstageable; L89.510 Pressure ulcer of right ankle, unstageable; L89.890 Pressure ulcer of other site, unstageable; Z79.4 Long term (current) use of insulin; Z79.899 Other long term (current) drug therapy; M24.561 Contracture, right knee; M24.562 Contracture, left knee; N40.0 Benign prostatic hyperplasia without lower urinary tract symptoms; R31.0 Gross hematuria; R13.10 Dysphagia, unspecified; Z86.711 Personal history of pulmonary embolism; Z93.1 Gastrostomy status; L89.626 Pressure-induced deep tissue damage of left heel; L89.896 Pressure-induced deep tissue damage of other site; N39.0 Urinary tract infection, site not specified; Z74.09 Other reduced mobility; M89.8X9 Other specified disorders of bone, unspecified site; K82.9 Disease of gallbladder, unspecified
CPT/HCPCS: 36415; 80048-TC; 81001; 83735-TC; 84100-TC; 85025-TC; 85027-TC; 85730-TC; 87081-TC; 87086-TC; 87186-TC; 90935-TC; A4216; A4223; A6213; A6253; A6403; G0378; J0744; J0885; J2185; J3490; J7030; P9047

== ENCOUNTER 2025-07-24 13:08 | Inpatient (IN) | payer MEDICARE, OTHER ==
[~2025-07-24] VITALS: Ht 170.2 cm; Wt 57.6 kg
[~2025-07-24 13:08] MED LIST changes: +COLL30OI TP; +ESCI10TA GT; -LEVO250S3 PO; +MERO500V23 IV; -NUTR1PAC14 GT; +[UNRECOGNIZED DRUG - CODE] TP
[2025-07-24 15:15] LABS: PLATELET COUNT (AUTO) 256 K/uL (150-450); RED BLOOD CELL COUNT(AUTO) 3.06 MIL/uL (4.5-6.0); RED CELL DISTRIBUTION WIDTH 19.0 % (11.5-15.0); WHITE BLOOD COUNT (AUTO) 14.5 K/uL (4.3-11.0)
[2025-07-24 15:29] LABS: ASPARTATE AMINOTRANSFERASE 22.0 U/L (15-37); CALCIUM, SERUM 8.5 mg/dL (8.5-10.1); CREATININE 1.6 mg/dL (0.6-1.3); SODIUM SERUM 137.0 mmol/L (136-145); TOTAL PROTEIN, SERUM 6.8 g/dL (6.4-8.2); UREA NITROGEN, BLOOD 35.0 mg/dL (7-18)
[2025-07-24 15:33] LABS: INR 1.06 (0.91-1.10)
[2025-07-24 15:37] LABS: LACTIC ACID 1.3 mmol/L (0.4-2.0)
[2025-07-24 16:18] LABS: APPEARANCE,URINE CLEAR (CLEAR); BLOOD, URINE Large Ery/uL (NEGATIVE); LEUKOCYTE ESTERASE ,URINE Large (NEGATIVE); NITRITE, URINE NEGATIVE (NEGATIVE); UGLUCOSE Negative (NEGATIVE)
[2025-07-24 16:21] LABS: ADD URINE CULTURE YES; HYALINE CASTS, URINE Few /LPF (None Seen); SQUAMOUS EPITHELIAL CELL,UR None Seen /HPF (None Seen); URINE AMORPHOUS PHOSPHATES Few /HPF (None Seen)
[2025-07-24] MEDS ORDERED: PIPERACI/TAZO 3.375GM/D5W 50ML PB IV ONE (16:41)
[2025-07-24] MEDS: PIPERACILLIN /TAZOBACTAM 3.375 G in IV D5W 50 ML IV ONE (16:52)
[2025-07-24] MEDS: IV NS 0.9% 500 ML BAG IV ONE (16:52)
[2025-07-24] MEDS ORDERED: MAGNESIUM HYDROXIDE 30 ML UDC PO PRN (18:00)
[2025-07-24] MEDS ORDERED: MAG HYDROX/AL HYDROX/SIMETH 30 ML UDC PO PRN (18:00)
[2025-07-24] MEDS ORDERED: ONDANSETRON HCL/PF 4 MG/2 ML VIAL IVP PRN (18:00)
[2025-07-24] MEDS ORDERED: ACETAMINOPHEN 325 MG TABLET PO PRN (18:00)
[2025-07-24] MEDS ORDERED: DEXTROSE 50%-WATER 50 ML DISP.SYRIN IV PRN (18:30)
[2025-07-24] MEDS ORDERED: POTASSIUM CHLORIDE 20 MEQ POWDER PACKET ONE ×2 (19:07→19:18)
[2025-07-24] MEDS: POTASSIUM CHLORIDE 20 MEQ POWDER PACKET GT ONE (19:22)
[2025-07-24 19:50] VITALS: BP 94/63; TEMP 97.7; O2SAT 100
[2025-07-24] MEDS: MEROPENEM 500 MG in IV NS 0.9% 50 ML IV SCH (22:00)
[2025-07-24 22:11] LABS: CALCIUM, SERUM 8.5 mg/dL (8.5-10.1); CREATININE 1.9 mg/dL (0.6-1.3); SODIUM SERUM 137.0 mmol/L (136-145); UREA NITROGEN, BLOOD 44.0 mg/dL (7-18)
[2025-07-25] VITALS: BP 101/55; TEMP 98.1; O2SAT 98
[2025-07-25] MEDS: BLOOD SUGAR DIAGNOSTIC 1 EACH STRIP IN SCH (00:01)
[2025-07-25] MEDS: INSULIN REGULAR, HUMAN 100 UNIT/ML 3 ML VIAL SQ PRN (00:02)
[2025-07-25] MEDS ORDERED: PIPERACILLIN /TAZOBACTAM 3.375 G in IV D5W 50 ML IV SCH (01:00)
[2025-07-25 04:00] VITALS: BP 114/74; TEMP 97.9; O2SAT 100
[2025-07-25 08:00] VITALS: BP 95/68; TEMP 97.6; O2SAT 96
[2025-07-25] MEDS: POTASSIUM CHLORIDE 20 MEQ POWDER PACKET GT ONE (08:56)
[2025-07-25] MEDS: Z GUARD REMEDY 4 OZ OINT TP PRN (08:57)
[2025-07-25] MEDS: PANTOPRAZOLE 40 MG TABLET.DR PO SCH (09:17)
[2025-07-25 10:53] LABS: PLATELET COUNT (AUTO) 365 K/uL (150-450); RED BLOOD CELL COUNT(AUTO) 3.09 MIL/uL (4.5-6.0); RED CELL DISTRIBUTION WIDTH 20.1 % (11.5-15.0); WHITE BLOOD COUNT (AUTO) 24.1 K/uL (4.3-11.0)
[2025-07-25 11:01] LABS: OCCULT BLOOD STOOL POSITIVE (NEGATIVE)
[2025-07-25 11:03] LABS: CALCIUM, SERUM 8.5 mg/dL (8.5-10.1); CREATININE 2.1 mg/dL (0.6-1.3); PHOSPHORUS 2.9 mg/dL (2.5-4.9); SODIUM SERUM 136.0 mmol/L (136-145); UREA NITROGEN, BLOOD 51.0 mg/dL (7-18)
[2025-07-25 12:00] VITALS: BP 102/68; TEMP 97.1; O2SAT 98
[2025-07-25 15:59] LABS: LYMPHOCYTES % (MANUAL) 9 % (16-48); MONOCYTES % (MANUAL) 3 % (0-11.0); NEUTROPHILS % (MANUAL) 88 (42-76); PLATELET ESTIMATE ADEQUATE
[2025-07-25 16:00] VITALS: BP 101/65; TEMP 97.8; O2SAT 100
[2025-07-25 20:00] VITALS: BP 101/62; TEMP 98.4; O2SAT 99
[2025-07-25] MEDS: PANTOPRAZOLE 40 MG VIAL IV SCH (22:42)
[2025-07-26] VITALS (7 sets, daily range): BP systolic 95–117; BP diastolic 57–73; TEMP 96.8–98.2; O2SAT 98–100
[2025-07-26 07:39] LABS: PLATELET COUNT (AUTO) 264 K/uL (150-450); RED BLOOD CELL COUNT(AUTO) 3.19 MIL/uL (4.5-6.0); RED CELL DISTRIBUTION WIDTH 19.9 % (11.5-15.0); WHITE BLOOD COUNT (AUTO) 16.6 K/uL (4.3-11.0)
[2025-07-26 08:11] LABS: CALCIUM, SERUM 8.4 mg/dL (8.5-10.1); CREATININE 1.7 mg/dL (0.6-1.3); PHOSPHORUS 2.3 mg/dL (2.5-4.9); SODIUM SERUM 141.0 mmol/L (136-145); UREA NITROGEN, BLOOD 29.0 mg/dL (7-18)
[2025-07-26] MEDS: IV D5/ 0.9% NACL 1,000 ML IV ONE (08:58)
[2025-07-26] MEDS: NEUTRA PHOS 1 POWD.PACKET NG ONE (16:34)
[2025-07-26] MEDS: NEPRO 1,000 ML BOTTLE GT PRN (20:22)
[2025-07-27 00:15] VITALS: BP 108/71; TEMP 98.8; O2SAT 100
[2025-07-27 04:15] VITALS: BP 120/73; TEMP 97.5; O2SAT 100
[2025-07-27 07:06] LABS: PLATELET COUNT (AUTO) 253 K/uL (150-450); RED BLOOD CELL COUNT(AUTO) 3.36 MIL/uL (4.5-6.0); RED CELL DISTRIBUTION WIDTH 19.6 % (11.5-15.0); WHITE BLOOD COUNT (AUTO) 10.9 K/uL (4.3-11.0)
[2025-07-27 07:31] LABS: CALCIUM, SERUM 8.8 mg/dL (8.5-10.1); CREATININE 2.2 mg/dL (0.6-1.3); PHOSPHORUS 3.6 mg/dL (2.5-4.9); SODIUM SERUM 144.0 mmol/L (136-145); UREA NITROGEN, BLOOD 42.0 mg/dL (7-18)
[2025-07-27 08:00] VITALS: BP 112/78; TEMP 97.7; O2SAT 100
[2025-07-27] MEDS ORDERED: DOSING PER PHARMACY-VANCOMYCIN IV XX PRN (11:30)
[2025-07-27] MEDS: DAKINS QUARTER STRENGTH (0.125%) 480 ML BOTTLE TOP SCH (11:35)
[2025-07-27 12:00] VITALS: BP 116/77; TEMP 97.3; O2SAT 100
[2025-07-27] MEDS: VANCOMYCIN 1 GM in IV D5W 250ml IV ONE (12:55)
[2025-07-27 16:00] VITALS: BP_SYST 111; BP_SYST 135; BP_DIAS 60; BP_DIAS 72; TEMP 97.9; O2SAT 97; O2SAT 99
[2025-07-27 20:00] VITALS: BP 103/65; TEMP 97.4; O2SAT 100
[2025-07-28] VITALS: BP 124/75; TEMP 97.8; O2SAT 100
[2025-07-28 04:00] VITALS: BP 119/68; TEMP 97.5; O2SAT 100
[2025-07-28 08:00] VITALS: BP 118/94; TEMP 98.3; O2SAT 97
[2025-07-28 08:20] LABS: PLATELET COUNT (AUTO) 179 K/uL (150-450); RED BLOOD CELL COUNT(AUTO) 3.65 MIL/uL (4.5-6.0); RED CELL DISTRIBUTION WIDTH 18.8 % (11.5-15.0); WHITE BLOOD COUNT (AUTO) 20.8 K/uL (4.3-11.0)
[2025-07-28 08:30] LABS: CALCIUM, SERUM 8.6 mg/dL (8.5-10.1); CREATININE 3.7 mg/dL (0.6-1.3); PHOSPHORUS 3.2 mg/dL (2.5-4.9); SODIUM SERUM 135.0 mmol/L (136-145); UREA NITROGEN, BLOOD 28.0 mg/dL (7-18)
[2025-07-28 12:00] VITALS: BP 122/77; TEMP 97.5; O2SAT 97
[2025-07-28 16:00] VITALS: BP 114/96; TEMP 97.2; O2SAT 96
[2025-07-28] MEDS ORDERED: NEPRO 1,000 ML BOTTLE GT PRN (18:30)
[2025-07-28 20:00] VITALS: BP 133/87; TEMP 97.2; O2SAT 100
[2025-07-28] MEDS ORDERED: DOSING PER PHARMACY-TOBRAMYCIN IV XX PRN (21:00)
[2025-07-28] MEDS: TOBRAMYCIN 80 MG in IV D5W 50 ML IV PRN (21:52)
[2025-07-29] VITALS: BP 108/77; TEMP 97.3; O2SAT 100
[2025-07-29 04:00] VITALS: BP 112/70; TEMP 97.9; O2SAT 100
[2025-07-29 07:08] LABS: PLATELET COUNT (AUTO) 254 K/uL (150-450); RED BLOOD CELL COUNT(AUTO) 3.46 MIL/uL (4.5-6.0); RED CELL DISTRIBUTION WIDTH 19.4 % (11.5-15.0); WHITE BLOOD COUNT (AUTO) 9.8 K/uL (4.3-11.0)
[2025-07-29 07:40] LABS: CALCIUM, SERUM 9.0 mg/dL (8.5-10.1); CREATININE 2.2 mg/dL (0.6-1.3); PHOSPHORUS 4.5 mg/dL (2.5-4.9); SODIUM SERUM 144.0 mmol/L (136-145); UREA NITROGEN, BLOOD 35.0 mg/dL (7-18)
[2025-07-29 08:00] VITALS: BP 110/84; TEMP 97; O2SAT 98
[2025-07-29] MEDS: ALBUMIN 25% 25 GM in PREMIX 1 EA IV PRN (12:23)
[2025-07-29] MEDS: MIDODRINE HCL (5MG) 5 MG TABLET PO SCH (14:18)
[2025-07-29 16:00] VITALS: BP 105/73; TEMP 97.2; O2SAT 98
[2025-07-29] MEDS: VANCOMYCIN POST DIALYSIS 500MG IV PRN (17:03)
[2025-07-29 20:00] VITALS: BP 105/73; TEMP 97.6; O2SAT 98
[2025-07-30] VITALS: BP 105/73; TEMP 97.6; O2SAT 98
[2025-07-30] MEDS: NEPRO 1,000 ML BOTTLE GT PRN
[2025-07-30 04:00] VITALS: BP_SYST 105; BP_SYST 129; BP_DIAS 73; BP_DIAS 81; TEMP 97.3; TEMP 97.6; O2SAT 100; O2SAT 98
[2025-07-30 08:20] VITALS: BP 99/73; TEMP 97.6; O2SAT 100
[2025-07-30] MEDS ORDERED: RXTOB XX (08:53)
[2025-07-30] MEDS ORDERED: MERO500P IV (08:53)
[2025-07-30 12:42] LABS: CALCIUM, SERUM 8.5 mg/dL (8.5-10.1); CREATININE 1.6 mg/dL (0.6-1.3); SODIUM SERUM 143.0 mmol/L (136-145); UREA NITROGEN, BLOOD 27.0 mg/dL (7-18)
[2025-07-30 12:46] VITALS: BP 118/74
== END 2025-07-30 13:30 | DRG 698 ==
LOC: ER 13:13 → TELE-TD 20:33 → TELE1 21:19 → MEDSG1 07-29 09:52
PROVIDERS: ATTEND Nurse Practitioner Acute Care
PROC: 5A1D70Z Performance of Urinary Filtration, Intermittent, Less than 6 Hours Per Day (ICD-10-PCS; principal; 2025-07-27)
DX: T83.511A Infection and inflammatory reaction due to indwelling urethral catheter, initial encounter (principal); A41.89 Other specified sepsis; L89.154 Pressure ulcer of sacral region, stage 4; N18.6 End stage renal disease; K92.2 Gastrointestinal hemorrhage, unspecified; D68.59 Other primary thrombophilia; I12.0 Hypertensive chronic kidney disease with stage 5 chronic kidney disease or end stage renal disease; R64 Cachexia; Z16.12 Extended spectrum beta lactamase (ESBL) resistance; E11.52 Type 2 diabetes mellitus with diabetic peripheral angiopathy with gangrene; G93.49 Other encephalopathy; Y84.6 Urinary catheterization as the cause of abnormal reaction of the patient, or of later complication, without mention of misadventure at the time of the procedure; Y92.129 Unspecified place in nursing home as the place of occurrence of the external cause; F01.50 Vascular dementia, unspecified severity, without behavioral disturbance, psychotic disturbance, mood disturbance, and anxiety; K21.9 Gastro-esophageal reflux disease without esophagitis; N40.0 Benign prostatic hyperplasia without lower urinary tract symptoms; R13.10 Dysphagia, unspecified; Z74.01 Bed confinement status; F20.9 Schizophrenia, unspecified; E03.9 Hypothyroidism, unspecified; B18.2 Chronic viral hepatitis C; Z79.4 Long term (current) use of insulin; Z79.899 Other long term (current) drug therapy; B96.5 Pseudomonas (aeruginosa) (mallei) (pseudomallei) as the cause of diseases classified elsewhere; B96.20 Unspecified Escherichia coli [E. coli] as the cause of diseases classified elsewhere; E11.22 Type 2 diabetes mellitus with diabetic chronic kidney disease; E11.621 Type 2 diabetes mellitus with foot ulcer; E78.5 Hyperlipidemia, unspecified; I95.3 Hypotension of hemodialysis; L97.519 Non-pressure chronic ulcer of other part of right foot with unspecified severity; Z87.440 Personal history of urinary (tract) infections; Z99.2 Dependence on renal dialysis; Z93.1 Gastrostomy status; L89.890 Pressure ulcer of other site, unstageable; I48.91 Unspecified atrial fibrillation; L89.210 Pressure ulcer of right hip, unstageable; L89.220 Pressure ulcer of left hip, unstageable; N30.91 Cystitis, unspecified with hematuria; M89.8X9 Other specified disorders of bone, unspecified site; E87.6 Hypokalemia; D63.8 Anemia in other chronic diseases classified elsewhere; B95.2 Enterococcus as the cause of diseases classified elsewhere; M62.40 Contracture of muscle, unspecified site
CPT/HCPCS: 36415; 71045-TC; 80048-TC; 80076-TC; 80202-TC; 81001; 82272-TC; 82962-TC; 83605-TC; 83690-TC; 83735-TC; 84100-TC; 84484-TC; 85025-TC; 85027-TC; 85730-TC; 86850-TC; 87040-TC; 87081-TC; 87086-TC; 87186-TC; 90935-TC; 93307-TC; A4216; A4223; A6213; A6254; A6403; G0378; J1815; J2185; J2470; J2543; J3260; J3373; J7030; J7040; J7042; J7050; J7060; P9047